=== PATIENT | female | born 1940 | race Caucasian/White ===

== ENCOUNTER → 2019-02-27 | Outpatient (CLI) | payer MEDICARE ==
--- NOTE | 2019-02-27 11:45 | REP ---
Clinical: Lung screening. History smoking. Comparison: None Technique: Axial low-dose noncontrast images from the thoracic inlet to the upper abdomen using lung screening technique. Findings: Focal area of right upper lobe scarring is appreciated with suggestions for a noncalcified central nodule measuring approximately 5 mm. Minimal bibasilar scarring is also appreciated. No consolidation, further nodule or mass lesion is identified. No pleural effusion/reaction or pneumothorax. Tracheobronchial tree is patent. Mediastinum demonstrates atherosclerotic changes of the thoracic aorta and coronary arteries without cardiomegaly. Impression: Lung-RADS category III. Right upper lobe scarring with small 5 mm noncalcified nodule suggested. Management recommendations include initial 6-month low-density CT follow-up. Electronically Signed by Omi Bhardwaj MD 02/27/2019 11:37 A
== END ==
LOC: M RAD 09:46
PROVIDERS: ATTEND Internal Medicine
DX: J44.9 Chronic obstructive pulmonary disease, unspecified (principal); R91.1 Solitary pulmonary nodule; Z12.2 Encounter for screening for malignant neoplasm of respiratory organs

== ENCOUNTER 2019-04-12 03:52 | Inpatient (IN) | payer MEDICARE ==
[2019-04-12] VITALS (25 sets, daily range): BP systolic 66–124; BP diastolic 40–61
[~2019-04-12] VITALS: Ht 157.5 cm; Wt 85.3 kg
[2019-04-12 04:13] LABS: BASO # 0.1 10^3/uL (0.0-0.2); BASO % 0.5 % (0.0-1.0); EOS # 0.3 10^3/uL (0.0-0.50); EOS % 2.4 % (0.0-3.0); HEMOGLOBIN 7.7 g/dl (12.0-15.5); LYMPH # 2.6 10^3/uL (1.5-4.5); LYMPH % 20.6 % (24.0-44.0); MEAN CORPUSCULAR HEMOGLOBIN 26.6 pg (27.0-33.0); MEAN CORPUSCULAR HGB CONC 29.6 g/dl (32.0-36.5); MONO # 1.3 10^3/uL (0.0-0.8); MONO % 9.9 % (0.0-5.0); NEUTROPHILS # 7.9 10^3/uL (1.8-7.7); NEUTROPHILS % 62.7 % (36.0-66.0); PLATELET COUNT, AUTOMATED 394 10^3/uL (150-450); RED BLOOD COUNT 2.89 10^6/uL (4.00-5.40); WHITE BLOOD COUNT 12.6 10^3/uL (4.0-10.0)
[2019-04-12 04:38] LABS: CALCIUM LEVEL 8.9 MG/DL (8.8-10.2); CK-MB VALUE MASS 8.2 NG/ML (<3.6); CREATININE FOR GFR 1.24 MG/DL (0.55-1.30); GLOMERULAR FILTRATION RATE 44.5 (>39); MB/CK RELATIVE INDEX 8.45 (< OR =4); POTASSIUM SERUM 4.7 MEQ/L (3.5-5.1); TROPONIN I 0.88 NG/ML (< 0.10)
[2019-04-12] MEDS ORDERED: IPRATROPIUM 0.5MG/ALBUTEROL 2.5MG INH SOL UD 3ML (DUONEB)(J7620) NEB ONE (05:00)
[2019-04-12] MEDS ORDERED: ASPIRIN 81 MG CHEW TABLET PO ONE (05:00)
[2019-04-12] MEDS ORDERED: ISOVUE-370 76% 100ML VIAL (Q9967) As Ordered ONE (05:04)
[2019-04-12 06:26] LABS: CK-MB VALUE MASS 8.4 NG/ML (<3.6); MB/CK RELATIVE INDEX 10.12 (< OR =4); TROPONIN I 0.93 NG/ML (< 0.10)
--- NOTE | 2019-04-12 07:21 | ECGEPIP ---
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
--- NOTE | 2019-04-12 07:29 | REPVR ---
EXAM: CT Angiography Chest With Contrast EXAM DATE/TIME: 04/12/2019 5:17 AM CLINICAL HISTORY: 78 years old, female; Chest pain TECHNIQUE: Imaging protocol: Axial computed tomographic angiography images of the chest with intravenous contrast using CT angiography protocol. Coronal and sagittal reformatted images were created and reviewed. 3D rendering: MIP reconstructed images were created and reviewed. Radiation optimization: All CT scans at this facility use at least one of these dose optimization techniques: automated exposure control; mA and/or kV adjustment per patient size (includes targeted exams where dose is matched to clinical indication); or iterative reconstruction. Contrast material: ISOVUE 370;Contrast volume: 75 ml;Contrast route: IV; COMPARISON: CR PORTABLE CHEST X-RAY 04/12/2019 4:09 AM LOW DOSE LUNG SCREENING CT 02/27/2019 10:01:17 AM FINDINGS: Pulmonary arteries: The pulmonary arteries are not enlarged. No filling defects are seen to indicate an acute pulmonary embolism. Aorta: The aorta demonstrates severe atherosclerotic plaque formation. Irregular plaque is seen in the arch of the aorta. There is no thoracic aortic aneurysm or evidence of dissection. Lungs: Architectural distortion and an associated irregular peripheral opacity are seen within the right upper lobe, nonspecific but probably postinflammatory in nature. A small area of peripheral consolidation abutting the major fissure is seen inferiorly in the left lower lobe, with associated mild architectural distortion. There is mild hazy peripheral opacity in the bilateral lobes and inferior lingula, nonspecific but probably incomplete expansion and subsegmental atelectasis. Pleural space: No pneumothorax or pleural effusions seen. Heart: There is mild cardiomegaly. There is moderate atherosclerotic calcification of the coronary arteries. Calcifications are seen at the level of the aortic valve. Spleen: A calcification in the spleen is likely a granuloma. Adrenals: The adrenal glands are diffusely thickened but without discrete nodules. Kidneys and ureters: Renal parenchymal thinning is seen in the visualized kidneys. Lymph nodes: No lymphadenopathy is seen. There is a coarsely calcified lymph node at the GE junction. Bones/joints: Degenerative endplate changes are seen at multiple levels in the visualized spine. A large Schmorl's node with depression of the center of the superior endplate is noted at the T12 vertebra. Soft tissues: Unremarkable. IMPRESSION: 1. No evidence of acute pulmonary embolism. 2. Extensive atherosclerotic disease of the thoracic aorta including irregular plaque in the arch of the aorta but no evidence of aortic aneurysm or dissection. 3. Peripheral opacities with associated architectural distortion in the right upper lobe and inferior left lower lobe, probably postinflammatory scarring, and grossly similar to the recent prior low-dose lung screening CT scan. Further interval followup is recommended however, following the recommendations given on the prior report. Electronically signed by: Jennifer Altman On 04/12/2019 07:28:43 AM
[2019-04-12] MEDS ORDERED: LISI10TA15 PO (08:06)
[2019-04-12] MEDS ORDERED: TRAV04OPD OU (08:06)
[2019-04-12] MEDS ORDERED: ASPI81TA85 PO (08:06)
[2019-04-12] MEDS ORDERED: MELO7.5T35 PO (08:06)
[2019-04-12] MEDS ORDERED: PREDOPD (08:06)
[2019-04-12] MEDS ORDERED: PANTOPRAZOLE SODIUM 40 MG in D5W 50 ML IV SCH (08:45)
[2019-04-12] MEDS ORDERED: NS 1,000 ML IV ONE ×2 (08:45→19:30)
[2019-04-12] MEDS ORDERED: PANTOPRAZOLE 40MG INJ (PROTONIX) (C9113) IV ONE (08:45)
--- NOTE | 2019-04-12 09:13 | REP ---
Portable chest x-ray: Single view. History: Semi-erect AP view. Comparison chest x-ray: June 09, 2015. Findings: EKG monitoring electrodes overlie the chest. Heart is not felt to be enlarged. The aorta is calcific and tortuous. Interstitial markings are somewhat prominent in the bases. There is mild linear fibrosis in the left base. The opacity previously projected in the right apex is no longer apparent. Impression: Bibasilar interstitial changes and linear fibrosis left base. Otherwise no acute disease. Electronically Signed by Terence Hull MD 04/12/2019 09:04 A
[2019-04-12 09:39] LABS: INR 1.01
[2019-04-12 09:40] LABS: PARTIAL THROMBOPLASTIN TIME 32.9 SECONDS (25.0-38.4)
[2019-04-12 10:43] LABS: CK-MB VALUE MASS 11.8 NG/ML (<3.6); MB/CK RELATIVE INDEX 9.15 (< OR =4); TROPONIN I 1.37 NG/ML (< 0.10)
[2019-04-12] MEDS ORDERED: MAALOX 30 ML SUSP *UDC PO PRN (11:30)
[2019-04-12] MEDS ORDERED: MOM 30ML SUSPENSION UDC PO PRN (11:30)
[2019-04-12] MEDS: IPRATROPIUM 0.5MG/ALBUTEROL 2.5MG INH SOL UD 3ML (DUONEB)(J7620) NEB SCH ×3 (12:06→20:50)
[2019-04-12] MEDS ORDERED: NICOTINE POLACRILEX 2 MG GUM PO PRN (12:30)
--- NOTE | 2019-04-12 13:01 | HPEPDOC ---
General Date of Admission 04/12/19 Date of Service: Apr 12, 2019 Other Providers PCP: Jamie Godwin; Cardiology: Sreedhar Attending Physician: ROSA RAMOS DO Chief Complaint The patient is a 78-year-old female admitted with a reason for visit of Chest Pain. Source: Patient Exam Limitations: No limitations Associated Symptoms: Chest Pain, Cough, Malaise, Shortness of breath, Weakness, Hypotension, Dizziness History of Present Illness 78 yo female brought to ED by EMS because of CP/SOB. Patient states she developped CP /SOB last night - no relief with rest, no change with exertion. States pain did not wake her up. It was not associated with N,V or diaphoresis. She states increased fatigue. not checking BP at home but faithfully taking meds. States melena stools for 1-2 days and chronic cough for years. States occasional dizziness for1-2 days. She states she started meloxicam for OA back yesterday. Drinks "couple cups" coffee daily and smokes. In the ED , patient was found to have bed bugs, elevated troponin and severely hypotensive and anemia. She was treated with IVF, IV Protonix and 1 unit pRBC Review of old records (in ED) show that pateint has had a slow decline in H/H since 07/2018. Home Medications Scheduled Aspirin (Aspir 81) 81 Mg Tablet.dr, 81 MG PO DAILY, (Reported) Lisinopril/Hydrochlorothiazide (Lisinopril-Hctz 10-12.5 mg Tab) 1 Each Tablet, 1 TAB PO DAILY, (Reported) Meloxicam (Meloxicam) 7.5 Mg Tablet, 7.5 MG PO BID, (Reported) Prednisolone Acetate (Prednisolone Acetate 1% Opth Susp) 5 Ml Drops.susp, QHS, (Reported) Travoprost (Travatan Z) 0.004% 2.5ML Drops, 1 DROP OU QHS, (Reported) Allergies Coded Allergies: No Known Allergies (Unverified , 04/12/19) Past Medical History Medical History HTN COPD Chronic anemia x 4 months OA back Glaucoma Family history: Mother NC age 58, father old age Social hx : smokes 1 ppd, +caffeine/coffee use, no etOH use Past surgical hx: LEONOR, Appy A-FIB/CHADSVASC A-FIB History Current/History of A-Fib/PAF?: No Review of Systems Other systems 10 systems reviewed and negative except as per HPI Physical Examination General Exam: Positive: Alert, Cooperative, No Acute Distress Eye Exam: Positive: PERRLA, Conjunctiva & lids normal, EOMI ENT Exam: Positive: Atraumatic, Pharynx Normal, Pinna Normal Neck Exam: Positive: Supple, +2 carotid pulse wo bruit Chest Exam: Positive: Clear to auscultation, Normal air movement, Diminished, Other (course breath sounds but no W/R/R) Heart Exam: Positive: Rate Normal, Regular Rhythm, Normal S1, Normal S2, Murmurs Telemetry: Positive: Sinus Abdomen Exam: Positive: Normal bowel sounds, Soft (NT ND, no rebound, no rigidity, obese), Other (HEME + stool) Extremity Exam: Positive: Normal pulses; Negative: Clubbing, Cyanosis, Edema Skin Exam: Positive: Nl turgor and temperature Neuro Exam: Positive: Normal Speech, Strength at 5/5 X4 ext, Normal Tone, Sensation Intact Psych Exam: Positive: Mental status NL, Mood NL, Memory Intact, Oriented x 3 Vital Signs Vital Signs Date Time Temp Pulse Resp B/P (MAP) Pulse Ox O2 Delivery O2 Flow Rate FiO2 04/12/19 11:01 85/48 (60) 04/12/19 11:00 98 98 04/12/19 08:00 97.2 15 Room Air 04/12/19 05:37 1.0 Laboratory Data Labs 24H Laboratory Tests 2 04/12/19 04:07: Immature Granulocyte % (Auto) 3.9H, White Blood Count 12.6H, Red Blood Count 2.89L, Hemoglobin 7.7L, Hematocrit 26.0L, Mean Corpuscular Volume 90.0, Mean Corpuscular Hemoglobin 26.6L, Mean Corpuscular Hemoglobin Concent 29.6L, Red Cell Distribution Width 17.1H, Platelet Count 394, Neutrophils (%) (Auto) 62.7, Lymphocytes (%) (Auto) 20.6L, Monocytes (%) (Auto) 9.9H, Eosinophils (%) (Auto) 2.4, Basophils (%) (Auto) 0.5, Neutrophils # (Auto) 7.9H, Lymphocytes # (Auto) 2.6, Monocytes # (Auto) 1.3H, Eosinophils # (Auto) 0.3, Basophils # (Auto) 0.1, Nucleated Red Blood Cells % (auto) 0.0, Anion Gap 11, Glomerular Filtration Rate 44.5, Blood Urea Nitrogen 36H, Creatinine 1.24, Sodium Level 141, Potassium Level 4.7, Chloride Level 106, Carbon Dioxide Level 24, Calcium Level 8.9, Total Creatine Kinase 97, Creatine Kinase MB 8.2H, Creatine Kinase MB Relative Index 8.45H, Troponin I 0.88H 04/12/19 05:59: Total Creatine Kinase 83, Creatine Kinase MB 8.4H, Creatine Kinase MB Relative Index 10.12H, Troponin I 0.93H 04/12/19 08:44: Prothrombin Time 13.0, Prothromb Time International Ratio 1.01, Activated Partial Thromboplast Time 32.9 04/12/19 09:54: Total Creatine Kinase 129, Creatine Kinase MB 11.8H, Creatine Kinase MB Relative Index 9.15H, Troponin I 1.37#H CBC/BMP Laboratory Tests 04/12/19 04:07 Red Blood Count 2.89 L, Mean Corpuscular Volume 90.0, Mean Corpuscular Hemoglobin 26.6 L, Mean Corpuscular Hemoglobin Concent 29.6 L, Red Cell Distribution Width 17.1 H, Neutrophils (%) (Auto) 62.7, Lymphocytes (%) (Auto) 20.6 L, Monocytes (%) (Auto) 9.9 H, Eosinophils (%) (Auto) 2.4, Basophils (%) (Auto) 0.5, Neutrophils # (Auto) 7.9 H, Lymphocytes # (Auto) 2.6, Monocytes # (Auto) 1.3 H, Eosinophils # (Auto) 0.3, Basophils # (Auto) 0.1, Calcium Level 8.9, Total Creatine Kinase [address] SCAN IMPRESSION: 1. No evidence of acute pulmonary embolism. 2. Extensive atherosclerotic disease of the thoracic aorta including irregular plaque in the arch of the aorta but no evidence of aortic aneurysm or dissection. 3. Peripheral opacities with associated architectural distortion in the right upper lobe and inferior left lower lobe, probably postinflammatory scarring, and grossly similar to the recent prior low-dose lung screening CT scan. Further interval followup is recommended however, following the recommendations given on the prior report. CXR:Impression: Bibasilar interstitial changes and linear fibrosis left base. Otherwise no acute disease. EKG: RBBB, no STT changes; 98 BPM Assessment/Plan symptomatic anemia due to chronic blood loss from probable chronic UGI bleed transfuse 1 unit pRBC (started in ED) will need outpatient EGD. Suspect gastritis from NSAID, Caffeine and tobacco use Hypotension without tachycardia Suspect due to BP medications and not from UGI bleed (as no tachycardia) IVF. supportive care Hold lisinopril/HCTZ Elevated troponin - demand ischemia (NSTEMI Type II) due to hypotension, anemia from chronic UGI bleed COPD - without exacerbation prn nebs Bed Bug infestation - seen in ED; contact isolation. DVT prophylaxis: lovenox CODE STATUS: DNR - patient states son will bring in her copy from home of [facility] Plan / VTE VTE Prophylaxis Ordered?: Yes ROSA RAMOS DO Apr 12, 2019 11:30
[2019-04-12] MEDS: PANTOPRAZOLE SODIUM 40 MG in D5W 50 ML IV SCH ×3 (14:13→19:30)
[2019-04-12] MEDS: CHLORHEXIDINE GLUCONATE 0.12 % 15ML UDC (PERIDEX ORAL RINSE) MT SCH ×2 (14:21→20:05)
[2019-04-12] MEDS: DOCUSATE SODIUM 100 MG CAP PO SCH ×2 (14:28→20:05)
[2019-04-12] MEDS: ENOXAPARIN 40 MG/0.4 ML SYRINGE (J1650) SC SCH (14:29)
[2019-04-12] MEDS: NICOTINE 21MG/24HR 1 EA TRANSDERMAL TD SCH (14:29)
[2019-04-12] MEDS: NS 1,000 ML IV SCH ×2 (14:29→22:03)
[2019-04-12 17:57] LABS: HEMATOCRIT 26.4 % (36.0-47.0); HEMOGLOBIN 8.3 g/dl (12.0-15.5); MEAN CORPUSCULAR HEMOGLOBIN 28.7 pg (27.0-33.0); MEAN CORPUSCULAR HGB CONC 31.4 g/dl (32.0-36.5); MEAN CORPUSCULAR VOLUME 91.3 fl (80.0-96.0); PLATELET COUNT, AUTOMATED 300 10^3/uL (150-450); RED BLOOD COUNT 2.89 10^6/uL (4.00-5.40); WHITE BLOOD COUNT 11.4 10^3/uL (4.0-10.0)
--- NOTE | 2019-04-12 20:12 | ECGEPIP ---
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
[2019-04-12] MEDS ORDERED: NOREPINEPHRINE BITARTRATE 8 MG in D5W 500 ML IV SCH (20:33)
[2019-04-12] MEDS ORDERED: NOREPINEPHRINE 4 MG/4 ML AMP As Ordered ONE (20:38)
[2019-04-12] MEDS ORDERED: SODIUM CHLORIDE 0.9% 1000ML IV ONE ×2 (20:45→21:30)
[2019-04-12 20:58] LABS: ABG HCO3 20.7 MEQ/L (22.0-26.0); ABG O2 SATURATION 99.2 % (95.0-99.0); ABG PARTIAL PRESSURE CO2 36.2 mmHg (35.0-45.0); ABG PARTIAL PRESSURE O2 160.6 mmHg (75.0-100.0); ABG STANDARD HCO3 21.1 MEQ/L (22.0-26.0); ABG TOTAL CO2 21.9 MEQ/L (23.0-31.0); ABG pH (ARTERIAL) 7.376 UNITS (7.350-7.450)
[2019-04-12] MEDS: PANTOPRAZOLE 40MG INJ (PROTONIX) (C9113) IV SCH (21:00)
[2019-04-12] MEDS: ACETAMINOPHEN TAB 650MG DOSE (2X325MG) PO PRN (21:36)
[2019-04-13] VITALS (26 sets, daily range): BP systolic 74–141; BP diastolic 48–70; O2SAT 93–98
[2019-04-13] MEDS ORDERED: SODIUM CHLORIDE 0.9% 1000ML IV ONE (01:15)
[2019-04-13 02:30] LABS: ABG BASE EXCESS -6.6 (-2.0-2.0); ABG HCO3 19.1 MEQ/L (22.0-26.0); ABG O2 SATURATION 90.4 % (95.0-99.0); ABG PARTIAL PRESSURE CO2 38.8 mmHg (35.0-45.0); ABG PARTIAL PRESSURE O2 62.1 mmHg (75.0-100.0); ABG STANDARD HCO3 18.9 MEQ/L (22.0-26.0); ABG TOTAL CO2 20.3 MEQ/L (23.0-31.0)
[2019-04-13] MEDS: ALBUTEROL SULFATE 2.5 MG/0.5 ML INH NEB SOLN NEB PRN (02:54)
[2019-04-13] MEDS: NS 1,000 ML IV SCH ×3 (03:03→12:58)
[2019-04-13 03:10] LABS: HEMATOCRIT 26.8 % (36.0-47.0); HEMOGLOBIN 8.3 g/dl (12.0-15.5); MEAN CORPUSCULAR HEMOGLOBIN 28.3 pg (27.0-33.0); MEAN CORPUSCULAR VOLUME 91.5 fl (80.0-96.0); PLATELET COUNT, AUTOMATED 304 10^3/uL (150-450); RED BLOOD COUNT 2.93 10^6/uL (4.00-5.40); WHITE BLOOD COUNT 9.9 10^3/uL (4.0-10.0)
[2019-04-13 03:36] LABS: ALBUMIN 2.9 GM/DL (3.2-5.2); BILIRUBIN,TOTAL 0.2 MG/DL (0.2-1.0); CALCIUM LEVEL 7.7 MG/DL (8.8-10.2); CREATININE FOR GFR 1.12 MG/DL (0.55-1.30); GLOMERULAR FILTRATION RATE 50.1 (>39); POTASSIUM SERUM 4.4 MEQ/L (3.5-5.1); TOTAL PROTEIN 5.8 GM/DL (6.4-8.2)
[2019-04-13] MEDS: IPRATROPIUM 0.5MG/ALBUTEROL 2.5MG INH SOL UD 3ML (DUONEB)(J7620) NEB SCH ×4 (07:25→20:41)
--- NOTE | 2019-04-13 07:27 | CCN ---
DATE OF VISIT: 04/12/2019 START TIME: 2049 STOP TIME: 2135 I was called to attend Briana Terry here in the intensive care unit. I was called by Dr. Fortune. The patient has been examined and the chart reviewed. I have spoken with Dr. Fortune as well as the nurse at the bedside. In essence, this is a 78-year-old female who is a long time tobacco abuser. She has known cardiac dysfunction and hypertension with chronic obstructive pulmonary disease (COPD). She was admitted today with chest pain and shortness of breath. She was found to be anemic and apparently this has been slowly progressive over time. Hemoglobin at the time of admission was 7.7. Troponin at that point in time was 0.88. Most recent one drawn at 1740 hours is up to 1.82. She was somewhat hypotensive on admission and was given 2 units of packed red blood cells as well as some IV fluids, a total of 3 liters. She remained hypotensive in the 60s and I was asked to evaluate her. On my arrival, she had been given a liter of saline per my order. Blood pressure now 90 systolic. Heart rate 110. Her chest pain is resolved. She complains of some back and neck pain. No fever. She smokes heavily at home and has no plans on quitting. She has proclaimed herself a DO NOT RESUSCITATE/DO NOT INTUBATE (DNR/DNI) and the appropriate paperwork has been signed by her. Lactic acid just drawn is 1.6. Blood gas shows a pH of 7.376, pCO2 36.2, and pO2 of 160 on [address] angiogram shows no clot. There is atherosclerotic disease and what appears to be peripheral scarring, especially of the right upper lobe. There may be an area of ground glass opacity peripherally in te posterior segment of the right upper lobe. The remainder of her laboratories show a white blood cell count of 12.6, platelet count of 394,000, 62% segs, 0 bands. Sodium 141, potassium 4.7, chloride 106, CO2 24, BUN 36, creatinine 1.24, glucose 108. Troponin as outlined above. Clotting studies unremarkable. On exam, she is awake, alert and appropriate. Follows all commands. Moves all extremities. Has some mild discomfort in her upper back and neck, but no meningismus. HEENT: Shows her to be normocephalic, atraumatic. Pupils react. Neck is reasonably supple. Trachea is midline. No jugular venous distention (JVD). Chest shows some end expiratory wheeze, only with forced maneuver. There is cough, but no egophony. There are some faint crackles dependently. No rubs. Cardiac: Mildly tachycardiac, but regular. Peripheral pulses palpable. No obvious edema. Abdomen: Obese. Soft. Active bowel sounds. Nontender. No obvious organomegaly or masses. Extremities: Without cyanosis or clubbing. Neurologic: She is awake, alert and appropriate. Psychiatric: Generally is with normal mood and affect. Laboratories as outlined above. Initially, afebrile at 96.8 on admission, maxed out at 100.1 and last temperature 99.9. Current medications show no antimicrobials and I do not see them to be indicated at this point. She is on DuoNeb, Lovenox, Tylenol, Colace, Mylanta, Nicoderm patches. The most pressing problems requiring my presence at the bedside are hypotension currently responding to IV fluids, positive troponins, long standing and continued tobacco abuse, DNR/DNI status. At this point, her cardiac status is being evaluated by the primary service. Repeat troponins have been ordered. At this point, she has responded nicely to IV fluids. Anemia work up is in progress through the primary service as well. At this point, I do not see an indication for vasopressors. I left the bedside at 2136 hours. 46 minutes of critical care time delivered at the bedside, not including procedures.
[2019-04-13] MEDS: CHLORHEXIDINE GLUCONATE 0.12 % 15ML UDC (PERIDEX ORAL RINSE) MT SCH ×2 (07:44→21:00)
[2019-04-13] MEDS: DOCUSATE SODIUM 100 MG CAP PO SCH ×2 (08:02→21:00)
[2019-04-13] MEDS: NICOTINE 21MG/24HR 1 EA TRANSDERMAL TD SCH (08:02)
[2019-04-13] MEDS: ENOXAPARIN 40 MG/0.4 ML SYRINGE (J1650) SC SCH (08:02)
[2019-04-13] MEDS: PANTOPRAZOLE 40MG INJ (PROTONIX) (C9113) IV SCH ×2 (08:03→21:30)
[2019-04-13 08:22] LABS: HEMATOCRIT 28.4 % (36.0-47.0); HEMOGLOBIN 8.8 g/dl (12.0-15.5); MEAN CORPUSCULAR HEMOGLOBIN 28.5 pg (27.0-33.0); MEAN CORPUSCULAR VOLUME 91.9 fl (80.0-96.0); PLATELET COUNT, AUTOMATED 305 10^3/uL (150-450); RED BLOOD COUNT 3.09 10^6/uL (4.00-5.40); WHITE BLOOD COUNT 10.6 10^3/uL (4.0-10.0)
[2019-04-13] MEDS ORDERED: diphenhydrAMINE 25 MG CAP PO SCH (09:30)
[2019-04-13] MEDS ORDERED: ACETAMINOPHEN TAB 650MG DOSE (2X325MG) PO SCH (09:30)
--- NOTE | 2019-04-13 09:42 | IPNPDOC ---
Text Note Date of Service The patient was seen on 04/13/19. NOTE S: patient had episode of increased SOB and worsening hypotension during night. Currently she states no CP, no wheezing (post neb) but more COCHRAN. She has had 2 heme negative stools. O: Vitals as below. Current BP 106/52 General: pleasant NAD AAOx3 HRRR no murmur LCTA no W/R/R Ext 1+ edema Abdomen soft NT ND NABS EKG: no change - incomplete RBBB CXR image reviewed and increased vascular congestion ECHO pending A/P: Hypotension without tachycardia Suspect due to BP medications and not from UGI bleed (as no tachycardia) temporary improvement with albumin transfusion last night Rope Tier consulted and assistance appreciated IVF (decrease from 200cc/hr to 80cc/hr). 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 ECHO pending Lasix x 1 dose ; hold lisinopril/HCT due to hypotension symptomatic anemia due to chronic blood loss from probable chronic UGI bleed transfuse 2 unit pRBC on 04/12/19 transfuse 1 unit pRBC on 04/13/19 with lasix after transfusion will need outpatient EGD. Suspect gastritis from NSAID, Caffeine and tobacco use COPD - without exacerbation scheduled duoneb q4hour. no need for steroids or antibiotics at this time. Bed Bug infestation - seen in ED; contact isolation. DVT prophylaxis: lovenox CODE STATUS: DNR VS,Fishbone, I+O VS, Fishbone, I+O Laboratory Tests 04/12/19 17:40 Red Blood Count 2.89 L, Mean Corpuscular Volume 91.3, Mean Corpuscular Hemoglobin 28.7, Mean Corpuscular Hemoglobin Concent 31.4 L, Red Cell Distribution Width 16.1 H 04/13/19 02:56 Red Blood Count 2.93 L, Mean Corpuscular Volume 91.5, Mean Corpuscular Hemoglobin 28.3, Mean Corpuscular Hemoglobin Concent 31.0 L, Red Cell Distribution Width 16.4 H, Calcium Level 7.7 L, Aspartate Amino Transf (AST/SGOT) 90 H, Alanine Aminotransferase (ALT/SGPT) 85 H, Alkaline Phosphatase 98, Total Bilirubin 0.2, Total Protein 5.8 L, Albumin 2.9 L Vital Signs Date Time Temp Pulse Resp B/P (MAP) Pulse Ox O2 Delivery O2 Flow Rate FiO2 04/13/19 06:49 96/49 (65) 04/13/19 05:49 97 98 04/13/19 04:00 6.0 04/13/19 03:49 99.0 18 04/13/19 02:51 Nasal Cannula I&O- Last 24 Hours up to 6 AM 04/13/19 06:00 Intake Total 8307 ml Output Total 1375 ml Balance 6932 ml ROSA RAMOS DO Apr 13, 2019 07:48
[2019-04-13] MEDS ORDERED: FUROSEMIDE 40 MG/4 ML VIAL (J1940) IV ONE (10:00)
--- NOTE | 2019-04-13 10:38 | REP ---
AP PORTABLE CHEST: 04/13/2019. Comparison: CT angio chest AP, chest 04/12/2019. Clinical history: Dyspnea. Compared to the previous study. There is more interstitial change in the lung abraham and vascular engorgement. I suggest some interstitial edema may be present. Increased markings in the right base reflect some patchy atelectasis or infiltrate. No gross effusions but small posterior effusion difficult to exclude. Heart size unchanged. The aorta is calcified at the arch. Airway intact. Impression: 1. Interval development of some vascular congestion and interstitial edema. Some superimposed patchy atelectasis/infiltrates/edema in the bases since the portable chest and CT of yesterday. Electronically Signed by Irving Perkins MD 04/13/2019 09:47 P
[2019-04-13 15:09] LABS: HEMATOCRIT 31.5 % (36.0-47.0); HEMOGLOBIN 9.7 g/dl (12.0-15.5); MEAN CORPUSCULAR HEMOGLOBIN 28.5 pg (27.0-33.0); MEAN CORPUSCULAR HGB CONC 30.8 g/dl (32.0-36.5); MEAN CORPUSCULAR VOLUME 92.6 fl (80.0-96.0); PLATELET COUNT, AUTOMATED 317 10^3/uL (150-450); WHITE BLOOD COUNT 13.3 10^3/uL (4.0-10.0)
--- NOTE | 2019-04-13 16:16 | ECGEPIP ---
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
--- NOTE | 2019-04-13 16:21 | ECGEPIP ---
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
--- NOTE | 2019-04-13 16:28 | CR ---
DATE OF CONSULTATION: 04/13/2019 REFERRING PROVIDER: Dr. Lani Lozano PRIMARY PHYSICIAN: Dr. Jamie Godwin PRIMARY CARDIOLOGY: Dr. Ole Eli REASON FOR CONSULTATION: Abnormal serum troponin. A 78-year-old woman, well known by the office, and she stated she usually sees Dr. Eli yearly. She came to the hospital on 04/12/2019, brought by her grandson because of chest pain, shortness of breath. She was found to be hypotensive in emergency room (ER) with a systolic blood pressure as low as 80 mm of mercury. She was given intravenous (IV) fluids. She also was found to be anemic, and she was transfused 2 units of packed red blood cells. She was admitted to intensive care unit (ICU)/critical care unit (CCU) for further management and monitoring. Serum troponin was abnormal, and cardiology consult was called. When I saw Mrs. Briana Terry, this morning, she was sitting in a chair in no acute distress at rest, and she was about to start her third unit of packed red blood cells. She stated she feels much better. She uses a walker at home, and prior to coming to the hospital, she had not been having any chest pain. She does have some shortness of breath with activities, relieved with rest. She has a cough but denies any hemoptysis. She denies any palpitations, and she has no pedal edema. She had no orthopnea or paroxysmal nocturnal dyspnea (PND). She has a long history of arthritis and was recently seen by orthopedics, and she was started on meloxicam, and she stated she only took 1 meloxicam. Prior to that, she has been on aspirin and lisinopril HCT. In the last few days prior to coming to the hospital, she had noticed some changes in the color of her stools. They were black. She has no focal manifestation. At this present time, she denies dizziness, and she has not been having any chest pain. She has no palpitations. There is no focal manifestation. She continues to cough. Last night, she also was hypotensive and received a few boluses of IV fluids with normal saline. PAST MEDICAL HISTORY: Positive for: 1. Hypertension. 2. Arthritis. 3. Chronic obstructive pulmonary disease (COPD). 4. Heart murmur, but the patient could not elaborate. 5. Arthritis with degenerative joint disease. 6. She does have a history of glaucoma and anemia. She denies any history of hyperlipidemia, diabetes mellitus, obstructive coronary artery disease, myocardial infarction, congestive heart failure, atrial fibrillation, cardiomyopathy, sudden cardiac , cerebrovascular accident (CVA)/transient ischemic attacks (TIA). PAST SURGICAL HISTORY: Positive for: 1. Appendectomy. 2. Transabdominal hysterectomy. FAMILY HISTORY. Positive for coronary artery disease (CAD). SOCIAL HISTORY: The patient currently lives with her grandson. She does smoke about one pack per day of cigarettes. She denies any EtOH (ethanol) abuse. She drinks a lot of caffeine. ALLERGIES: No known drug allergies. HOME MEDICATIONS: - aspirin 81 mg by mouth daily - lisinopril HCT 10/12.5 mg by mouth daily - meloxicam 7.5 mg by mouth twice a day - Travatan eyedrops 0.004% as directed both eyes at bedtime. - prednisolone 1% ophthalmic solution as directed at bedtime ADVANCE DIRECTIVES: The patient has a DO NOT RESUSCITATE and DO NOT INTUBATE status. PHYSICAL EXAMINATION: The patient he is alert and awake in no acute distress at rest. VITAL SIGNS: When I was at bedside revealed a blood pressure of 110/65 with a pulse of 92, respiration 18, and her maximum temperature earlier today was 99 degrees Fahrenheit with an oxygen saturation of 92-93% on 6 liters nasal cannula. HEAD: Atraumatic. NECK: Supple and no jugular venous distention (JVD) appreciated. LUNGS: Did not reveal any wheezing. There are some minimal crackles at the bases. HEART: Revealed regular heart sounds without gallops. The point of maximal impulse (PMI) is not displaced. There is no rub. There is a systolic murmur, grade 2-3 over 6 over the precordium lateral at the base of heart/aortic valve area with some minimal radiation to the neck. ABDOMEN: Unremarkable. EXTREMITIES: Reveal no pedal edema. Peripheral pulses, radial pulses palpated and equal. NEUROLOGIC: Negative for focal deficit. LABORATORY DATA: CBC done this morning at 8:13 revealed a WBC of 10.6, hemoglobin 8.8, hematocrit 28.4, and platelets 305,000. On admission April 12, CBC revealed WBC of 12.6, hemoglobin 7.7, hematocrit 26.0, and platelets 394,000. BMP done today revealed a sodium of 139, potassium 4.4, chloride 113, CO2 of 21, BUN 24, creatinine 1.12, GFR 50.1 ,fasting glucose 116, calcium 7.7. Serum lactic acid was 1.6. Liver enzymes reveal a total bilirubin 0.2, AST 90. ALT 85, alkaline phosphatase is 98, total protein 5.8, albumin 2.9. Serum troponins were 0.88, 0.93, 1.37, 1.82, 1.71, and today 2.18, respectively, #1 and up to #6. Serum proBNP is 3268. BMP on admission revealed a sodium of 141, potassium 4.7, chloride 106, CO2 of 24, BUN 36, creatinine 1.24, GFR 44.5, fasting glucose 108, and calcium 8.9. Electrocardiogram on 04/12/2019 at 5:57 revealed normal sinus rhythm with an incomplete right bundle branch block pattern. There were some minimal ST-T abnormalities noted in the anterolateral leads. Electrocardiogram on 04/12/2019 at 10:06 did not reveal any significant changes. Telemetry revealed normal sinus rhythm. Chest x-ray on admission, 04/12/2019, revealed bibasilar interstitial changes, otherwise no acute disease process. The aorta is calcific and tortuous. CT angiogram on admission revealed no evidence of pulmonary embolism but extensive atherosclerotic disease of the thoracic aorta but no aneurysm or dissection. Chest x-ray today early in the morning revealed increased interstitial markings/edema. IMPRESSION: 1. Abnormal serum troponin in a 78-year-old woman with history of hypertension, smoking, and extensive atherosclerotic disease noted in the thoracic aorta. The physical examination revealed valvular heart disease that is probably related to moderate aortic stenosis. She was markedly anemic on presentation. She was found to have abnormal stool guaiac. The abnormal serum troponin is probably related to demand ischemia, but in view of her history, she probably has underlying obstructive coronary artery disease that will need to be worked out once more stable and as outpatient. There is no need at this present time to give her high dose of anticoagulation therapy because of the positive stool guaiac and anemia and melena. She is not candidate for any angiotensin-converting enzyme (APRYL) inhibitor or beta bull at this present time because of hypotension. I would stay away from any statin because of the abnormal liver function tests (LFTs). I will repeat the LFTs tomorrow, and if it is improved, she will be started on a high-intensity statin. We also will stay away from antiplatelet therapy at this present time. If she continues to be stable, we can start her on a baby aspirin. 2. History of hypertension, status post hypotensive episodes, and her blood pressure is improved. She will be monitored off the lisinopril HCT. 4. Valvular heart disease and probably aortic stenosis, at least moderate. This is being addressed. Echocardiogram is pending. 5. Active smoker, currently on nicotine patch. 6. Status post acute kidney injury, improving. 7. Anemia due to gastrointestinal (GI) blood loss, and this is being addressed. She has received already 3 units of packed red blood cells. She will benefit at some point from GI workup if she agrees. 8. Arthritis secondary to degenerative joint disease. 9. History of chronic obstructive pulmonary disease (COPD), on oxygen supplement. 10. Heart failure, probably diastolic in nature. Echocardiogram is pending. Intravenous (IV) Lasix/furosemide can be given as needed to prevent and treat her fluid overload. It was a pleasure to participate in the care of Mrs. Briana Terry for her underlying cardiac condition. I will continue to monitor her along issue. Please do not hesitate to call if any question. Case was discussed with her hospitalist. SHAINA
[2019-04-13 21:14] LABS: HEMATOCRIT 30.3 % (36.0-47.0); HEMOGLOBIN 9.3 g/dl (12.0-15.5); MEAN CORPUSCULAR HEMOGLOBIN 28.3 pg (27.0-33.0); MEAN CORPUSCULAR HGB CONC 30.7 g/dl (32.0-36.5); MEAN CORPUSCULAR VOLUME 92.1 fl (80.0-96.0); PLATELET COUNT, AUTOMATED 278 10^3/uL (150-450); RED BLOOD COUNT 3.29 10^6/uL (4.00-5.40); WHITE BLOOD COUNT 11.2 10^3/uL (4.0-10.0)
[2019-04-13] MEDS: OPTH OU SCH (21:30)
[2019-04-13] MEDS: TRAVATAN Z 0.004% OU SCH (21:30)
[2019-04-14] VITALS (10 sets, daily range): BP systolic 95–124; BP diastolic 45–74; O2SAT 96–98
[2019-04-14] MEDS: IPRATROPIUM 0.5MG/ALBUTEROL 2.5MG INH SOL UD 3ML (DUONEB)(J7620) NEB SCH ×6 (01:53→23:44)
[2019-04-14] MEDS: NS 1,000 ML IV SCH (02:54)
[2019-04-14] MEDS: ALBUTEROL SULFATE 2.5 MG/0.5 ML INH NEB SOLN NEB PRN (04:03)
[2019-04-14 05:26] LABS: HEMATOCRIT 29.1 % (36.0-47.0); MEAN CORPUSCULAR HEMOGLOBIN 27.8 pg (27.0-33.0); MEAN CORPUSCULAR HGB CONC 30.9 g/dl (32.0-36.5); MEAN CORPUSCULAR VOLUME 89.8 fl (80.0-96.0); PLATELET COUNT, AUTOMATED 299 10^3/uL (150-450); RED BLOOD COUNT 3.24 10^6/uL (4.00-5.40); WHITE BLOOD COUNT 10.4 10^3/uL (4.0-10.0)
[2019-04-14 05:56] LABS: ALBUMIN 2.8 GM/DL (3.2-5.2); BILIRUBIN,TOTAL 0.2 MG/DL (0.2-1.0); CALCIUM LEVEL 8.3 MG/DL (8.8-10.2); CHOLESTEROL RISK RATIO 3.527 (<5); CREATININE FOR GFR 1.01 MG/DL (0.55-1.30); GLOMERULAR FILTRATION RATE 56.4 (>39); POTASSIUM SERUM 4.2 MEQ/L (3.5-5.1); TOTAL PROTEIN 5.7 GM/DL (6.4-8.2); TROPONIN I 1.6 NG/ML (< 0.10)
--- NOTE | 2019-04-14 10:22 | IPNPDOC ---
Text Note Date of Service The patient was seen on 04/14/19. NOTE S: patient states feeling better. abdomen pain with increased cough. States no CP, +chronic cough and SOB. no orthopnea. Does not use oxygen at home and is currently on 6 liter with ox sat 97%. O: Vitals as below. BP improved and stable 118/72 current HRRR with murmur LCTA with course scattered rhonchi, right base rales Ext: 1+ edema CXR images reviewed and increased vascular congestion, possible infiltrate RLL vs atelectasis A/P: Hypotension without tachycardia - RESOLVED Suspect due to BP medications and not from UGI bleed (as no tachycardia) temporary improvement with albumin transfusion last night Players Assistant and cardiology consulted and assistance appreciated d/c IVF. Transfer from ICU to PCU Elevated troponin - probable demand ischemia (NSTEMI Type II) due to hypotension, anemia from chronic UGI bleed with possible underlying CAD Patient usually sees Dr Eli - will need outpatient follow up of CAD Start ASA 81mg and metoprolol succ 12.5mg daily with hold parameters now that BP is stabilized. Troponins trending down. Aortic Stenosis - moderate - echo pending . cardiology consulted. start metoprolol 12.5mg daily and if BP tolerates, add back low dose APRYL-I. avoid diuretics unless worsening CHF Acute diastolic CHF due to IVF for hypotension resuscitation - given one dose IV lasix on 04/13. monitor Chronic bronchitis with underlying COPD without exacerbation - start rocephin/azithromycin. IS PEP, nebs symptomatic anemia due to chronic blood loss from probable chronic UGI bleed transfuse 2 unit pRBC on 04/12/19 transfuse 1 unit pRBC on 04/13/19 with lasix after transfusion will need outpatient EGD. Suspect gastritis from NSAID, Caffeine and tobacco use Bed Bug infestation - seen in ED; contact isolation. DVT prophylaxis: lovenox CODE STATUS: DNR VS,Fishbone, I+O VS, Fishbone, I+O Laboratory Tests 04/13/19 08:13 Red Blood Count 3.09 L, Mean Corpuscular Volume 91.9, Mean Corpuscular Hemoglobin 28.5, Mean Corpuscular Hemoglobin Concent 31.0 L, Red Cell Distribution Width 16.6 H 04/13/19 14:59 Red Blood Count 3.40 L, Mean Corpuscular Volume 92.6, Mean Corpuscular Hemoglobin 28.5, Mean Corpuscular Hemoglobin Concent 30.8 L, Red Cell Distrib ution Width 16.2 H 04/13/19 21:08 Red Blood Count 3.29 L, Mean Corpuscular Volume 92.1, Mean Corpuscular Hemoglobin 28.3, Mean Corpuscular Hemoglobin Concent 30.7 L, Red Cell Di stribution Width 16.5 H 04/14/19 05:00 Red Blood Count 3.24 L, Mean Corpuscular Volume 89.8, Mean Corpuscular Hemoglobin 27.8, Mean Corpuscular Hemoglobin Concent 30.9 L, Red Cell Distribution Width 16.5 H, Calcium Level 8.3 L, Aspartate Amino Transf (AST/SGOT) 41 H, Alanine Aminotransferase (ALT/SGPT) 62, Alkaline Phosphatase 91, Total Bilirubin 0.2, Triglycerides Level 88, LDL Cholesterol 73, Total Protein 5.7 L, Albumin 2.8 L Vital Signs Date Time Temp Pulse Resp B/P (MAP) Pulse Ox O2 Delivery O2 Flow Rate FiO2 04/14/19 04:03 98 Nasal Cannula 6.0 04/14/19 04:00 98.7 119 18 124/74 (91) I&O- Last 24 Hours up to 6 AM 04/14/19 06:00 Intake Total 4020 ml Output Total 3000 ml Balance 1020 ml ROSA RAMOS DO Apr 14, 2019 07:58
[2019-04-14] MEDS: CHLORHEXIDINE GLUCONATE 0.12 % 15ML UDC (PERIDEX ORAL RINSE) MT SCH ×2 (10:23→20:45)
[2019-04-14] MEDS: DOCUSATE SODIUM 100 MG CAP PO SCH ×2 (10:24→20:45)
[2019-04-14] MEDS: METOPROLOL SUCC *XL* 12.5MG PER 1/2 TAB (TopROL *XL*) PO SCH (10:24)
[2019-04-14] MEDS: NICOTINE 21MG/24HR 1 EA TRANSDERMAL TD SCH (10:42)
[2019-04-14] MEDS: cefTRIAXone SOD 2 GM in D5W MINI-BAG PLUS 50 ML IV SCH (10:43)
[2019-04-14] MEDS: AZITHROMYCIN 250 MG TAB PO SCH (10:43)
[2019-04-14] MEDS: ASPIRIN 81 MG ENTERIC TAB PO SCH (10:43)
[2019-04-14] MEDS: PANTOPRAZOLE 40MG TAB (PROTONIX) PO SCH ×2 (10:44→20:46)
[2019-04-14] MEDS: ENOXAPARIN 40 MG/0.4 ML SYRINGE (J1650) SC SCH (10:44)
[2019-04-14] MEDS ORDERED: FUROSEMIDE 20 MG/2 ML VIAL (J1940) IV ONE (12:00)
--- NOTE | 2019-04-14 12:36 | IPN ---
DATE OF SERVICE: 04/14/2019 Mrs. Briana Terry was seen this morning, she was sitting in chair in no acute distress at rest in the intensive care unit (ICU). She denies any chest pain. She was admitted a couple days ago with anemia secondary to gastrointestinal (GI) bleeding and hypotensive. She was found to have an abnormal serum troponin. She was transfused up to 3 units of packed red blood cells. This morning, when I saw her, she denies any chest pain or palpitations. She appears to be a little short of breath. Her stools have been back to the regular color and she was started on a baby aspirin daily. She is now being started by the hospitalist on IV antibiotics. There is no focal manifestation. There is no abdominal pain. There is no fever or chills. On physical examination, the patient is alert and oriented, in no acute distress at rest. Her most recent vital signs reveal a blood pressure of 113/59 - 104/59 with a pulse that was up to 105 when I was at bedside, respirations 20 and a maximum temperature 98.8 degrees Fahrenheit with an oxygen saturation of 93% on 6 liters nasal cannula. Examination of the Head: Atraumatic. Neck is supple. I could not appreciate any jugular venous distention (JVD) when sitting. Lungs: Revealed minimal crackles at the bases. Heart Examination revealed irregular sounds without gallops. The PMI is nondisplaced. There is no rub. There is a systolic murmur grade 2-3/6 over the precordium lateral to the base of the heart with some radiation to the neck. Abdomen is protuberant, nontender. Extremities: Revealed trace to +1 bilateral lower leg edema. Neurological examination is negative for focal deficit. Labs: BMP done today revealed a sodium of 142, potassium 4.2, chloride 113, CO2 23, BUN 17, creatinine 0.10, GFR 56.4, fasting glucose 93 and calcium 8.3. Liver enzymes revealed total bilirubin of 0.2, AST 41, ALT 62, alkaline phosphatase 91, total protein 5.7, and albumin 2.8. Serum troponin yesterday was 2.18, 2.19, and this morning is 1.60. Lipid profile done today revealed a total cholesterol of 127 with triglycerides of 88, LDL cholesterol 73 and HDL 36 with a total cholesterol/HDL ratio of 3.5. CBC done today revealed a WBC of 10.4, hemoglobin 9.0, hematocrit 29.1 and platelet 199,000. Telemetry revealed normal sinus rhythm, mildly tachycardiac, isolated PACs noted when I was at bedside. Chest x-ray seems to be a poor inspiratory film with mild cardiomegaly, blunting of the costophrenic angle and increase vascular markings, tortuous and calcified aorta noted. IMPRESSIONS: 1. Abnormal serum troponin. Patient with a history of hypertension, smoking and extensive atherosclerotic disease noted in the thoracic aorta. Most likely, she has underlying coronary artery disease (CAD). Echocardiogram done yesterday revealed a normal global left ventricular systolic function. She has not been having any chest pain. Her abnormal serum troponin may be related to some degree of demand ischemia in the setting of anemia, hypotension and underlying valvular heart disease, but will need to one point rule out any restrictive CAD is she agrees to proceed. I have noticed that she has a DO NOT RESUSCITATE order status. She was started on baby aspirin and I will continue same. She will be started on a small dose of statin. If her blood pressure remains stable, she will be started later today on a small dose of a short acting beta-bull with metoprolol tartrate. 2. Congestive failure, diastolic in nature. She will be given a small dose of IV furosemide/Lasix and will monitor blood pressure. Will need also to monitor BUN, creatinine and serum potassium. 3. History of hypertension. Blood pressure was low, hypotensive when she was admitted, but has improved and remains stable. Will stay away from the lisinopril/HCTZ. Will first initiate her on a beta bull. 4. Valvular heart disease. An echocardiogram done yesterday revealed moderate aortic stenosis as preliminary report and normal LVEF. This will be reviewed. 5. Active smoker and she is currently on nicotine patch. 6. Status post acute kidney injury, resolved. 7. Abnormal LFTs, significantly improved. We will continue to monitor that. She might benefit from a statin, but there is no need for intensive statin therapy. There is no need for statin therapy in view of her lipid profile. 8. History of COPD, on oxygen supplement. 9. History of heavy smoking and active, currently on nicotine patch. 10. Anemia secondary to GI bleed. The patient has received 3 units of packed red blood cells. She will benefit from GI workup is she agrees. It was a pleasure to participate in the care of Mrs. Briana Terry for her underlying cardiac condition. She appears to be stable and her condition has improved. Tomorrow, Dr. Eli, will be seeing her. The case was discussed with her hospitalist, Dr. Lozano.
--- NOTE | 2019-04-14 12:48 | REP ---
AP PORTABLE CHEST: 04/14/2019: Comparison: AP chest 04/13/2019, 04/12/2019, CT 04/12/2019. Clinical history: CHF. Findings: Cardiomegaly and vascular congestion again seen. However, there is now extensive airspace opacity and consolidation in the right base with bilateral effusions right greater than left. There is to be some fluid tracking in the minor fissure. Heart size enlarged. The aorta is calcified and tortuous. Airway intact. Impression: 1. Cardiomegaly with vascular redistribution and interstitial edema. There is a much more extensive and dense opacification now present in the right lower lobe representing atelectasis or consolidation with effusion. Much smaller left effusion. Whether this represents compressive atelectasis from pleural effusion, or superimposed pneumonia or both is uncertain. Clinical correlation advised. Electronically Signed by Irving Perkins MD 04/14/2019 08:33 P
[2019-04-14] MEDS: OPTH OU SCH (20:46)
[2019-04-14] MEDS: TRAVATAN Z 0.004% OU SCH (20:46)
[2019-04-14] MEDS: ACETAMINOPHEN TAB 650MG DOSE (2X325MG) PO PRN (21:23)
[2019-04-15] VITALS: BP 100/52
[2019-04-15 03:00] VITALS: BP 104/57
[2019-04-15 04:12] LABS: HEMATOCRIT 28.7 % (36.0-47.0); HEMOGLOBIN 8.9 g/dl (12.0-15.5); MEAN CORPUSCULAR HEMOGLOBIN 28.5 pg (27.0-33.0); PLATELET COUNT, AUTOMATED 263 10^3/uL (150-450); RED BLOOD COUNT 3.12 10^6/uL (4.00-5.40); WHITE BLOOD COUNT 9.1 10^3/uL (4.0-10.0)
[2019-04-15] MEDS: IPRATROPIUM 0.5MG/ALBUTEROL 2.5MG INH SOL UD 3ML (DUONEB)(J7620) NEB SCH ×6 (04:18→23:12)
[2019-04-15 04:33] LABS: CALCIUM LEVEL 8.9 MG/DL (8.8-10.2); CREATININE FOR GFR 1.29 MG/DL (0.55-1.30); GLOMERULAR FILTRATION RATE 42.6 (>39); MB/CK RELATIVE INDEX 3.26 (< OR =4); POTASSIUM SERUM 3.8 MEQ/L (3.5-5.1); TROPONIN I 1.12 NG/ML (< 0.10)
--- NOTE | 2019-04-15 06:54 | ECHO ---
DATE OF SERVICE: 04/13/2019 AGE: 78 REFERRING PROVIDER: Dr. Lani Lozano PATIENT ROOM NUMBER: [id number] REASON FOR THE ECHOCARDIOGRAM: Abnormal serum troponin, heart murmur. 2D MEASUREMENTS: IVS: 1.3 cm LV: 4.3 cm LVPW: 1.3 cm LA: 4.4 cm Aorta: 2.6 cm RV: 1.8 cm IVC: 2.9 cm DOPPLER MEASUREMENTS: Peak velocity across the aortic valve: 3.5 m/s Peak velocity across the LVOT: 0.95 m/s Peak gradient across the aortic valve: 50 mmHg Mean gradient across the aortic valve: 31 mmHg Mitral E: 1.4 Mitral A: 1.3 with a ratio of 1.1 Maximum tricuspid valve velocity: 2.9 m/s 2D COMMENTS: 1. Normal left ventricular size with mildly increased left ventricular wall thickness. Left ventricular systolic function is normal, estimated at 60-65%. 2. Mildly enlarged left atrium. Normal right atrium and right ventricle. 3. The atrial septum appeared to be normal without evidence of defect or shunt. 4. Normal aortic root. 5. Trace to small pericardial effusion noted, no evidence of cardiac tamponade. Right pleural effusion also noted. 6. Markedly calcified aortic valve with decrease in leaflet excursion. Mildly calcified mitral annulus with normal anterior mitral valve leaflet motion. Normal tricuspid valve and pulmonic valve. 7. The inferior vena cava is dilated, central venous pressure is most likely normal. Doppler, it detects trace to mild aortic regurgitation and mild to moderate mitral regurgitation. Mild tricuspid regurgitation also detected. The calculated pulmonary artery systolic pressure varies between 40-50 mmHg. Abnormal relaxation pattern was noted across the mitral valve annulus consistent with a pseudonormal pattern, left ventricular end-diastolic pressure might be elevated. IMPRESSION: 1. Normal global left ventricular systolic function with mild concentric left ventricular hypertrophy. There is some features of grade 2 left ventricular diastolic dysfunction. 2. Aortic valve sclerosis with trace to mild aortic radiation and moderate aortic stenosis. 3. Mitral annulus calcification with mildly enlarged left atrium and mild to moderate mitral regurgitation. 4. Mild tricuspid radiation with probably moderate pulmonary hypertension. 5. Trace to small pericardial effusion noted, no evidence of cardiac tamponade. Right pleural effusion also noted.
[2019-04-15 08:14] VITALS: BP 114/62
[2019-04-15] MEDS: CHLORHEXIDINE GLUCONATE 0.12 % 15ML UDC (PERIDEX ORAL RINSE) MT SCH (09:00)
[2019-04-15] MEDS: ENOXAPARIN 40 MG/0.4 ML SYRINGE (J1650) SC SCH (09:40)
[2019-04-15] MEDS: NICOTINE 21MG/24HR 1 EA TRANSDERMAL TD SCH (09:40)
[2019-04-15] MEDS: DOCUSATE SODIUM 100 MG CAP PO SCH ×2 (09:40→20:05)
[2019-04-15] MEDS: METOPROLOL SUCC *XL* 12.5MG PER 1/2 TAB (TopROL *XL*) PO SCH (09:40)
[2019-04-15] MEDS: ASPIRIN 81 MG ENTERIC TAB PO SCH (09:40)
[2019-04-15] MEDS: AZITHROMYCIN 250 MG TAB PO SCH (09:40)
[2019-04-15] MEDS: cefTRIAXone SOD 2 GM in D5W MINI-BAG PLUS 50 ML IV SCH (09:41)
[2019-04-15] MEDS: PANTOPRAZOLE 40MG TAB (PROTONIX) PO SCH ×2 (09:46→20:05)
[2019-04-15 16:37] VITALS: BP 109/56
--- NOTE | 2019-04-15 17:04 | IPNPDOC ---
Text Note Date of Service The patient was seen on 04/15/19. NOTE S: patient feeling better. ambulated with nurse today. no CP, no SOB. less c ough. Wants to go home. no fever. O: Vitals as below General: pleasant NAD AAOx3 Heart tachycardic at 110 with murmur LCTA with rales, no rhonchi Ext: trace edema A/P: Hypotension without tachycardia - RESOLVED Suspect due to BP medications and not from UGI bleed (as no tachycardia) temporary improvement with albumin transfusion last night [employer] Sales Engineer and cardiology consulted and assistance appreciated d/c IVF. Transfer from ICU to PCU Elevated troponin - probable demand ischemia (NSTEMI Type II) due to hypotension, anemia from chronic UGI bleed with possible underlying CAD Patient usually sees Dr Eli - will need outpatient follow up of CAD/stress test or cath. Start ASA 81mg and metoprolol succ 12.5mg daily with hold parameters now that BP is stabilized. Troponins trending down. Aortic Stenosis - moderate - cardiology consulted. start metoprolol 12.5mg daily and if BP tolerates, add back low dose APRYL-I. avoid diuretics unless worsening CHF Acute diastolic CHF due to IVF for hypotension resuscitation - given one dose IV lasix on 04/13 and 04/15; monitor Chronic bronchitis with underlying COPD without exacerbation - started on rocephin/azithromycin. change to augmentin; IS PEP, nebs symptomatic anemia due to chronic blood loss from probable chronic UGI bleed transfuse 2 unit pRBC on 04/12/19 transfuse 1 unit pRBC on 04/13/19 with lasix after transfusion will need outpatient EGD. Suspect gastritis from NSAID, Caffeine and tobacco use Bed Bug infestation - seen in ED; contact isolation. DVT prophylaxis: lovenox CODE STATUS: DNR Disposition: possible discharge monday or monday if remains hemodynamically stable. VS,Fishbone, I+O VS, Fishbone, I+O Laboratory Tests 04/15/19 03:35 Red Blood Count 3.12 L, Mean Corpuscular Volume 92.0, Mean Corpuscular Hemoglobin 28.5, Mean Corpuscular Hemoglobin Concent 31.0 L, Red Cell Distribution Width 16.5 H, Calcium Level 8.9, Total Creatine Kinase 92 Vital Signs Date Time Temp Pulse Resp B/P (MAP) Pulse Ox O2 Delivery O2 Flow Rate FiO2 04/15/19 09:40 106 114/62 04/15/19 08:14 97.9 18 93 04/15/19 06:00 2.0 04/14/19 04:03 Nasal Cannula I&O- Last 24 Hours up to 6 AM 04/15/19 06:00 Intake Total 1855 ml Output Total 3625 ml Balance -1770 ml ROSA RAMOS DO Apr 15, 2019 14:23
[2019-04-15 20:00] VITALS: BP 92/58
[2019-04-15] MEDS: AUGMENTIN 875 MG TAB PO SCH (20:05)
[2019-04-15] MEDS: OPTH OU SCH (20:09)
[2019-04-15] MEDS: TRAVATAN Z 0.004% OU SCH (20:09)
[2019-04-15] MEDS: BENZONATATE 100 MG CAP PO PRN (23:44)
[2019-04-16] VITALS: BP 105/62
[2019-04-16 03:20] LABS: HEMATOCRIT 26.5 % (36.0-47.0); HEMOGLOBIN 8.1 g/dl (12.0-15.5); MEAN CORPUSCULAR HEMOGLOBIN 27.1 pg (27.0-33.0); MEAN CORPUSCULAR HGB CONC 30.6 g/dl (32.0-36.5); MEAN CORPUSCULAR VOLUME 88.6 fl (80.0-96.0); PLATELET COUNT, AUTOMATED 295 10^3/uL (150-450); RED BLOOD COUNT 2.99 10^6/uL (4.00-5.40); WHITE BLOOD COUNT 10.2 10^3/uL (4.0-10.0)
[2019-04-16 03:46] LABS: CALCIUM LEVEL 8.3 MG/DL (8.8-10.2); CREATININE FOR GFR 1.13 MG/DL (0.55-1.30); GLOMERULAR FILTRATION RATE 49.6 (>39); MB/CK RELATIVE INDEX 2.3 (< OR =4); POTASSIUM SERUM 4.1 MEQ/L (3.5-5.1); TROPONIN I 0.75 NG/ML (< 0.10)
[2019-04-16 04:00] VITALS: BP 109/69
[2019-04-16] MEDS: IPRATROPIUM 0.5MG/ALBUTEROL 2.5MG INH SOL UD 3ML (DUONEB)(J7620) NEB SCH ×6 (04:00→23:18)
[2019-04-16] MEDS: BENZONATATE 100 MG CAP PO PRN (05:22)
[2019-04-16 06:00] VITALS: BP 139/81
[2019-04-16] MEDS: PANTOPRAZOLE 40MG TAB (PROTONIX) PO SCH ×2 (09:07→20:23)
[2019-04-16] MEDS: METOPROLOL SUCC *XL* 12.5MG PER 1/2 TAB (TopROL *XL*) PO SCH (09:08)
[2019-04-16] MEDS: AZITHROMYCIN 250 MG TAB PO SCH (09:08)
[2019-04-16] MEDS: ASPIRIN 81 MG ENTERIC TAB PO SCH (09:08)
[2019-04-16] MEDS: ENOXAPARIN 40 MG/0.4 ML SYRINGE (J1650) SC SCH (09:08)
[2019-04-16] MEDS: AUGMENTIN 875 MG TAB PO SCH ×2 (09:08→20:23)
[2019-04-16] MEDS: DOCUSATE SODIUM 100 MG CAP PO SCH ×2 (09:08→20:23)
[2019-04-16] MEDS: NICOTINE 21MG/24HR 1 EA TRANSDERMAL TD SCH (09:09)
--- NOTE | 2019-04-16 09:11 | REP ---
PA and lateral chest: Comparison is a 2018. There are bilateral pleural effusions, not significantly changed. The previous vascular redistribution has resolved. Cardiac size is upper normal. The indira, mediastinum, and skeletal structures are unremarkable. Impression: The vascular redistribution has resolved. There are persisting bilateral pleural effusions. Electronically Signed by Les Weldon MD 04/16/2019 09:03 A
[2019-04-16 14:00] VITALS: BP 104/62
--- NOTE | 2019-04-16 15:27 | IPNPDOC ---
Text Note Date of Service The patient was seen on 04/16/19. NOTE Subjective: Patient seen and examined at bedside. no CP, no SOB. less cough. Objective: Vitals as below General - NAD, sitting up in bed, well groomed Eyes - PERRLA, EOM intact Neck - No noticeable or palpable swelling, redness or rash around throat or on face Lymph Nodes - No lymphadenopathy Cardiovascular - RRR no m/r/g, no JVD, no carotid bruits Lungs - Clear to auscltation, no use of acessory muscles, no crackles or wheezes. Skin - No rashes, skin warm and dry, no erythematous areas Abdomen - Normal bowel sounds, abdomen soft and nontender Extremeties - No edema, cyanosis or clubbing Musculo Skeletal - 5/5 strength, normal range of motion, no swollen or erythematous joints. Neurological Alert and oriented x 3, CN 2-12 grossly intact A/P: #Hypotension w - RESOLVED -Suspect due to BP medications - Transfer from ICU to PCU #Elevated troponin - 2/2 demand ischemia (NSTEMI Type II) due to hypotension, anemia from chronic UGI bleed with possible underlying CAD -Patient usually sees Dr Eli - will need outpatient follow up of CAD/stress test or cath. -Start ASA 81mg and metoprolol succ 12.5mg daily with hold parameters now that BP is stabilized. -Troponins trending down. #Aortic Stenosis - moderate - cardiology consulted. start metoprolol 12.5mg daily and if BP tolerates, add back low dose APRYL-I. - avoid diuretics unless worsening CHF #Acute diastolic CHF due to IVF for hypotension resuscitation - given one dose IV lasix on 04/13 and 04/15; monitor #Chronic bronchitis with underlying COPD without exacerbation - started on rocephin/azithromycin. change to augmentin at time of DC; IS PEP, nebs #symptomatic anemia due to chronic blood loss from probable chronic UGI bleed -transfuse 2 unit pRBC on 04/12/19 -transfuse 1 unit pRBC on 04/13/19 with lasix after transfusion - Suspect gastritis from NSAID, Caffeine and tobacco use -GI consulted, f/u guiac -on protonix 40 PO BID -repeat Hb in am #Bed Bug infestation - seen in ED; contact isolation. DVT prophylaxis: lovenox CODE STATUS: DNR Disposition: possible discharge monday if remains hemodynamically stable. Awaiting GI recs VS,Krupae, I+O VS, Dustinbone, I+O Laboratory Tests 04/16/19 03:09 Red Blood Count 2.99 L, Mean Corpuscular Volume 88.6, Mean Corpuscular Hemoglobin 27.1, Mean Corpuscular Hemoglobin Concent 30.6 L, Red Cell Distribution Width 16.5 H, Calcium Level 8.3 L, Total Creatine Kinase 87 Vital Signs Date Time Temp Pulse Resp B/P (MAP) Pulse Ox O2 Delivery O2 Flow Rate FiO2 04/16/19 09:08 67 139/81 04/16/19 06:00 97.2 18 96 04/15/19 06:00 2.0 04/14/19 04:03 Nasal Cannula I&O- Last 24 Hours up to 6 AM 04/16/19 06:00 Intake Total 1400 ml Output Total 1750 ml Balance -350 ml TAMRA BARCENAS MD Apr 16, 2019 15:27
[2019-04-16] MEDS: MIRALAX *UNIT DOSE* 17GM PACKET PO SCH (15:52)
[2019-04-16] MEDS: OPTH OU SCH (20:24)
[2019-04-16] MEDS: TRAVATAN Z 0.004% OU SCH (20:24)
[2019-04-16 22:00] VITALS: BP 107/63
[2019-04-17] MEDS: IPRATROPIUM 0.5MG/ALBUTEROL 2.5MG INH SOL UD 3ML (DUONEB)(J7620) NEB SCH ×6 (02:24→20:27)
[2019-04-17 06:00] VITALS: BP 110/63
[2019-04-17 06:25] LABS: HEMATOCRIT 28.9 % (36.0-47.0); HEMOGLOBIN 9.1 g/dl (12.0-15.5); MEAN CORPUSCULAR HEMOGLOBIN 28.3 pg (27.0-33.0); MEAN CORPUSCULAR HGB CONC 31.5 g/dl (32.0-36.5); PLATELET COUNT, AUTOMATED 326 10^3/uL (150-450); RED BLOOD COUNT 3.21 10^6/uL (4.00-5.40); WHITE BLOOD COUNT 11.1 10^3/uL (4.0-10.0)
[2019-04-17 06:53] LABS: CALCIUM LEVEL 8.9 MG/DL (8.8-10.2); CREATININE FOR GFR 1.03 MG/DL (0.55-1.30); GLOMERULAR FILTRATION RATE 55.2 (>39)
[2019-04-17] MEDS: MIRALAX *UNIT DOSE* 17GM PACKET PO SCH (09:00)
[2019-04-17] MEDS: ENOXAPARIN 40 MG/0.4 ML SYRINGE (J1650) SC SCH (09:00)
[2019-04-17] MEDS: METOPROLOL SUCC *XL* 12.5MG PER 1/2 TAB (TopROL *XL*) PO SCH (10:59)
[2019-04-17] MEDS: ASPIRIN 81 MG ENTERIC TAB PO SCH (10:59)
[2019-04-17] MEDS: NICOTINE 21MG/24HR 1 EA TRANSDERMAL TD SCH (10:59)
[2019-04-17] MEDS: AUGMENTIN 875 MG TAB PO SCH ×2 (11:00→20:35)
[2019-04-17] MEDS: DOCUSATE SODIUM 100 MG CAP PO SCH ×2 (11:00→20:36)
[2019-04-17] MEDS: PANTOPRAZOLE 40MG TAB (PROTONIX) PO SCH ×2 (11:00→20:36)
[2019-04-17] MEDS ORDERED: ALBUTEROL SULFATE 2.5 MG/0.5 ML INH NEB SOLN As Ordered ONE (14:02)
[2019-04-17] MEDS ORDERED: PROPOFOL 200 MG/20 ML VIAL As Ordered ONE (14:06)
[2019-04-17] MEDS ORDERED: LIDOCAINE 2% INJ 100 MG/5 ML SDV (FOR ANES.) As Ordered ONE (14:06)
--- NOTE | 2019-04-17 14:34 | ROOR ---
Patient Name: Briana Terry Procedure Date: 04/17/2019 2:23 PM Date of : 1940 Age: 78 Room: [facility] Gender: Female Note Status: Finalized Procedure: Upper GI endoscopy Indications: Iron deficiency anemia, Recent gastrointestinal bleeding Providers: Myke Lee MD Referring MD: 1. No Referring Physician 1. No Referring Physician, Admin. Requesting Provider: Medicines: Monitored Anesthesia Care Complications: No immediate complications. Procedure: Pre-Anesthesia Assessment: - The heart rate, respiratory rate, oxygen saturations, blood pressure, adequacy of pulmonary ventilation, and response to care were monitored throughout the procedure. The Endoscope was introduced through the mouth, and advanced to the second part of duodenum. The upper GI endoscopy was accomplished without difficulty. The patient tolerated the procedure well. Findings: The Z-line was regular and was found 40 cm from the incisors. Localized moderate inflammation characterized by congestion (edema), erosions, erythema and aphthous ulcerations was found in the gastric antrum. Localized mild inflammation characterized by congestion (edema), erosions and erythema was found in the duodenal bulb and in the first portion of the duodenum. The exam was otherwise without abnormality. Impression: - Z-line regular, 40 cm from the incisors. - Gastritis. - Duodenitis. - The examination was otherwise normal. - No specimens collected. - The examination was otherwise normal. Recommendation: - Patient has a contact number available for emergencies. The signs and symptoms of potential delayed complications were discussed with the patient. Return to normal activities tomorrow. Written discharge instructions were provided to the patient. - [facility]. - Use Prilosec (omeprazole) 40 mg PO daily. - Return to referring physician. - The findings and recommendations were discussed with the patient's family. Myke Lee MD Myke Lee MD 04/17/2019 2:33:48 PM Electronically signed by Myke Lee MD Number of Addenda: 0 Note Initiated On: 04/17/2019 2:23 PM Estimated Blood Loss: Estimated blood loss: none.
[2019-04-17] MEDS ORDERED: ALBUTEROL SULFATE 2.5 MG/0.5 ML INH NEB SOLN INH ONE (14:45)
[2019-04-17 15:13] VITALS: BP 102/60
--- NOTE | 2019-04-17 15:59 | IPNPDOC ---
Text Note Date of Service The patient was seen on 04/17/19. NOTE Subjective: Patient seen and examined at bedside. no CP, no SOB. less cough. Objective: Vitals as below General - NAD, sitting up in bed, well groomed Eyes - PERRLA, EOM intact Neck - No noticeable or palpable swelling, redness or rash around throat or on face Lymph Nodes - No lymphadenopathy Cardiovascular - RRR no m/r/g, no JVD, no carotid bruits Lungs - Clear to auscltation, no use of acessory muscles, no crackles or wheezes. Skin - No rashes, skin warm and dry, no erythematous areas Abdomen - Normal bowel sounds, abdomen soft and nontender Extremeties - No edema, cyanosis or clubbing Musculo Skeletal - 5/5 strength, normal range of motion, no swollen or erythematous joints. Neurological Alert and oriented x 3, CN 2-12 grossly intact A/P: #Hypotension w - RESOLVED -Suspect due to BP medications - Transfer from ICU to PCU #Elevated troponin - 2/2 demand ischemia (NSTEMI Type II) due to hypotension, anemia from chronic UGI bleed with possible underlying CAD -Patient usually sees Dr Eli - will need outpatient follow up of CAD/stress test or cath. -Start ASA 81mg and metoprolol succ 12.5mg daily with hold parameters now that BP is stabilized. -Troponins trending down. #Aortic Stenosis - moderate - cardiology consulted. start metoprolol 12.5mg daily and if BP tolerates, add back low dose APYRL-I. - avoid diuretics unless worsening CHF #Acute diastolic CHF due to IVF for hypotension resuscitation - given one dose IV lasix on 04/13 and 04/15; monitor #Chronic bronchitis with underlying COPD without exacerbation - started on rocephin/azithromycin. change to augmentin at time of DC; IS PEP, nebs #symptomatic anemia due to chronic blood loss from probable chronic UGI bleed -transfuse 2 unit pRBC on 04/12/19 -transfuse 1 unit pRBC on 04/13/19 with lasix after transfusion - patient underwent EGD thia am, f/u GI recs -repeat Hb in am #Bed Bug infestation - seen in ED; contact isolation. DVT prophylaxis: lovenox CODE STATUS: DNR Disposition: possible discharge monday if remains hemodynamically stable. Awaiting GI recs VS,Fishbone, I+O VS, Fishbone, I+O Laboratory Tests 04/17/19 06:04 Red Blood Count 3.21 L, Mean Corpuscular Volume 90.0, Mean Corpuscular Hemoglobin 28.3, Mean Corpuscular Hemoglobin Concent 31.5 L, Red Cell Distribution Width 16.2 H, Calcium Level 8.9 Vital Signs Date Time Temp Pulse Resp B/P (MAP) Pulse Ox O2 Delivery O2 Flow Rate FiO2 04/17/19 15:13 97.9 100 20 102/60 (74) 93 04/15/19 06:00 2.0 04/14/19 04:03 Nasal Cannula I&O- Last 24 Hours up to 6 AM 04/17/19 06:00 Intake Total 1043 ml Balance 1043 ml TAMRA BARCENAS MD Apr 17, 2019 15:59
[2019-04-17] MEDS: BENZONATATE 100 MG CAP PO PRN (17:58)
[2019-04-17] MEDS: TRAVATAN Z 0.004% OU SCH (20:36)
[2019-04-17] MEDS: OPTH OU SCH (20:36)
[2019-04-17 22:00] VITALS: BP 113/63
--- NOTE | 2019-04-17 22:47 | CR ---
DATE OF CONSULTATION: 04/16/2019 This is a 78-year-old white female who is being seen by gastrointestinal (GI) for evaluation of anemia of unclear etiology. The patient was admitted due to shortness of breath and chest pain, which started approximately 24 hours prior to admission. She had no complaints of nausea, vomiting, fevers, night sweats, or shaking chills. The patient apparently states that she has had black tarry stools approximately 48 hours prior to admission. She has never had any upper endoscopy. She has been on chronic baby aspirin therapy. She is on lisinopril and hydrochlorothiazide, meloxicam 7.5 mg twice a day, prednisolone ophthalmic suspension. ALLERGIES: No known declared allergies. PAST MEDICAL HISTORY: Positive for: 1. Hypertension. 2. Chronic obstructive pulmonary disease (COPD). 3. Anemia for approximately 4 months. 4. Osteoarthritis of her back. 5. Glaucoma. FAMILY HISTORY: Positive for heart disease. Mother at age 58. Father of old age. SOCIAL HISTORY: The patient smokes one pack a day. The patient drinks coffee. No alcohol abuse. PAST SURGICAL HISTORY: Positive for: 1. Appendectomy. 2. Total abdominal hysterectomy. REVIEW OF SYSTEMS: A 10-point review of systems is noncontributory. PHYSICAL EXAMINATION: GENERAL: Well-developed, well-nourished white female in no obvious acute distress who appears stated age. CHEST: Clear to auscultation. CARDIOVASCULAR: Shows a regular rhythm. No murmurs or gallops. Normal physiological split, S1 to S2. ABDOMEN: Soft, nontender. No masses, guarding, rebound, hepatosplenomegaly. Bowel sounds positive. LABORATORY STUDIES: On admission include a CBC on admission with a count of 7.7 and 26.0. Platelets were 394,000. Patient had a white count 12,600 on admission. The patient had a chemistry profile on admission, which showed elevation of troponins of 1.37. CPK-MB was 9.15. The patient's coagulation profile was normal. She received 3 units of packed cells and 2 units of 25% albumin. The patient apparently was in intensive care unit (ICU) at this time. Due to the elevated troponins, Dr. Zee saw her of cardiology, and he did not feel the patient had a myocardial infarction, at this time just a demand ischemic event. At this point the patient is being seen by GI for probable upper endoscopy at this point due to history of chronic nonsteroidal use for her chronic back pain. PLAN: Set the patient up for an upper endoscopy in outpatient procedures tomorrow after outpatient procedures. The patient has been made nothing by mouth. This has been discussed with the patient, and she is agreeable at this time.
[2019-04-18] MEDS: IPRATROPIUM 0.5MG/ALBUTEROL 2.5MG INH SOL UD 3ML (DUONEB)(J7620) NEB SCH ×5 (04:00→15:07)
[2019-04-18 06:00] VITALS: BP 102/54
[2019-04-18 06:25] LABS: HEMATOCRIT 27.1 % (36.0-47.0); HEMOGLOBIN 8.4 g/dl (12.0-15.5); MEAN CORPUSCULAR HEMOGLOBIN 28.1 pg (27.0-33.0); MEAN CORPUSCULAR VOLUME 90.6 fl (80.0-96.0); PLATELET COUNT, AUTOMATED 320 10^3/uL (150-450); RED BLOOD COUNT 2.99 10^6/uL (4.00-5.40); WHITE BLOOD COUNT 9.1 10^3/uL (4.0-10.0)
[2019-04-18 06:55] LABS: CALCIUM LEVEL 8.9 MG/DL (8.8-10.2); CREATININE FOR GFR 1.01 MG/DL (0.55-1.30); GLOMERULAR FILTRATION RATE 56.4 (>39)
[2019-04-18] MEDS: DOCUSATE SODIUM 100 MG CAP PO SCH (09:00)
[2019-04-18] MEDS: MIRALAX *UNIT DOSE* 17GM PACKET PO SCH (09:00)
[2019-04-18] MEDS: PANTOPRAZOLE 40MG TAB (PROTONIX) PO SCH (09:51)
[2019-04-18] MEDS: AUGMENTIN 875 MG TAB PO SCH (09:51)
[2019-04-18] MEDS: ASPIRIN 81 MG ENTERIC TAB PO SCH (09:51)
[2019-04-18] MEDS: NICOTINE 21MG/24HR 1 EA TRANSDERMAL TD SCH (09:52)
[2019-04-18] MEDS: ENOXAPARIN 40 MG/0.4 ML SYRINGE (J1650) SC SCH (09:52)
[2019-04-18 09:53] VITALS: BP 111/62
[2019-04-18] MEDS: METOPROLOL SUCC *XL* 12.5MG PER 1/2 TAB (TopROL *XL*) PO SCH (09:53)
[2019-04-18 14:00] VITALS: BP 94/57
[2019-04-18] MEDS ORDERED: AMOX875T2 PO (16:37)
[2019-04-18] MEDS ORDERED: COLA100C5 PO (16:37)
[2019-04-18] MEDS ORDERED: PEG1POW PO (16:37)
[2019-04-18] MEDS ORDERED: METO1TAB32 PO (16:37)
[2019-04-18] MEDS ORDERED: BENZ-18 PO (16:37)
[2019-04-18] MEDS ORDERED: PANT40TA3 PO (16:37)
--- NOTE | 2019-04-18 18:50 | DS.PDOC ---
Discharge Summary General Date of Admission Apr 12, 2019 at 11:20 Date of Discharge April 18, 2019 Primary Care Physician: Joshua Specialist/Consultants Involve: Myke Lee Specialist/Consultants Involve Dr. Guru Zee of the Cardiology service Discharge Summary PROCEDURES PERFORMED DURING STAY: EGD; transfusion with packed red blood cells, echocardiogram. ADMITTING DIAGNOSES: 1. ACUTE BLOOD LOSS ANEMIA; HYPOTENSION. DISCHARGE DIAGNOSES: 1. ACUTE BLOOD LOSS ANEMIA resolved, HYPOTENSION-RESOLVED; Gastritis, Duodenitis; NSTEMI type II--demand ischemia; chronic diastolic CHF; pulmonary hypertension; moderate Aortic Stenosis; Chronic bronchitis, dyslipidemia, essential hypertension, osteoarthritis, glaucoma, bed bug infestation. COMPLICATIONS/CHIEF COMPLAINT: Cardiac Ischemia, Infestation By Bed Bug,Upper Gi. HISTORY OF PRESENT ILLNESS/HOSPITAL COURSE: This is a 78-year-old female who was brought to the emergency room. She had chest pain and shortness of breath. She came to the ER as it continued unrelieved. It was accompanied by melena and fatigue. Upon initial evaluation, she was noted to be hypotensive and to have notable decrease in hemoglobin. Initial intervention included IV fluids and transfusion with packed red blood cells. Concern was raised for GI blood loss in particular. Hemoglobin was down to 7.7. Again, the patient stabilized with transfusion and IV hydration. She did undergo evaluation by upper endoscopy. She was noted to have areas of gastritis and duodenitis. She is on proton pump inhibitor. Troponin was noted to be elevated up to 2.19. Patient was seen by cardiology service; this was attributed to ischemic demand due to anemia. Patient did undergo evaluation by echocardiogram; ejection fraction was noted to be 60-65%. There are also findings of an elevated pulmonary arterial systolic pressure consistent with moderate pulmonary hypertension. Note was also made of grade 2 diastolic dysfunction and moderate aortic stenosis. The patient was noted in the ER to have bedbug infestation. This did not require any particular intervention and that bugs were not evident upon her arrival to the floor. At the time of discharge, the patient was cleared to be on aspirin. She will need to follow-up with cardiology service to discuss APRYL inhibitor, beta bull and statin. Patient had slight low blood pressures and slightly elevated LFTs. She will also need to follow-up with the GI service in about one month.. DISCHARGE MEDICATIONS: Please see below. ALLERGIES: Please see below. PHYSICAL EXAMINATION ON DISCHARGE: VITAL SIGNS: Please see below. GENERAL: Awake, alert, conversant up in chair. HEENT: Neck was supple with no adenopathy or thyromegaly CARDIOVASCULAR EXAMINATION: Regular rate and rhythm with a normal S1 and S2 RESPIRATORY EXAMINATION: Clear to auscultation ABDOMINAL EXAMINATION: Soft, nontender, moderate central obesity EXTREMITIES: No peripheral edema, pedal pulses palpable SKIN: No pallor or lesions NEUROLOGICAL EXAMINATION: No focal neuromotor or sensory deficit LABORATORY DATA: Please see below. IMAGING: PROGNOSIS: ACTIVITY: As tolerated. DIET: Heart healthy DISCHARGE PLAN: The patient is stable for discharge to home. She will remain on proton pump inhibitor until follow-up with the GI service. Additionally, she will need to follow-up with her group sales representative, Dr. Eli to discuss medical management; patient was not able to have APRYL inhibitor or beta bull or statin at discharge due to low blood pressures and mildly elevated liver function tests. She was cleared by GI to resume her aspirin. DISPOSITION: . DISCHARGE INSTRUCTIONS: 1. . ITEMS TO FOLLOWUP ON ON OUTPATIENT: 1. . DISCHARGE CONDITION: Stable. TIME SPENT ON DISCHARGE: Greater than 40 minutes. Vital Signs/I&Os Vital Signs Date Time Temp Pulse Resp B/P (MAP) Pulse Ox O2 Delivery O2 Flow Rate FiO2 04/18/19 14:00 97.6 103 22 94/57 (69) 89 04/15/19 06:00 2.0 04/14/19 04:03 Nasal Cannula l I&O- Last 24 Hours up to 6 AM 04/18/19 06:00 Intake Total 1070 ml Balance 1070 ml Laboratory Data Labs 24H Laboratory Tests 2 04/18/19 06:01: Nucleated Red Blood Cells % (auto) 0.0, Anion Gap 3L, Glomerular Filtration Rate 56.4, Blood Urea Nitrogen 17, Creatinine 1.01, Sodium Level 139, Potassium Level 4.0, Chloride Level 107, Carbon Dioxide Level 29, Calcium Level 8.9 CBC/BMP Laboratory Tests 04/18/19 06:01 Red Blood Count 2.99 L, Mean Corpuscular Volume 90.6, Mean Corpuscular Hemog lobin 28.1, Mean Corpuscular Hemoglobin Concent 31.0 L, Red Cell Distribution Width 16.0 H, Calcium Level 8.9 Microbiology Microbiology 04/17/19 Stool Occult Blood (LAUREN) - Final, Complete Discharge Medications Scheduled Amoxicillin/Potassium Clav (Amox-Clav 875-125 mg Tablet) 1 Each Tablet, 875 MG PO BID Aspirin (Aspir 81) 81 Mg Tablet.dr, 81 MG PO DAILY, (Reported) Docusate Sodium (Colace) 100 Mg Capsule, 100 MG PO BID Metoprolol Succinate (Metoprolol Succinate) 25 Mg Tab.er.24h, 12.5 MG PO DAILY Pantoprazole Sodium (Pantoprazole Sodium) 40 Mg Tablet.dr, 40 MG PO BID Polyethylene Glycol 3350 (Polyethylene Glycol 3350) 17 Gm Powd.pack, 1 PKT PO DAILY Prednisolone Acetate (Prednisolone Acetate 1% Opth Susp) 5 Ml Drops.susp, QHS, (Reported) Travoprost (Travatan Z) 0.004% 2.5ML Drops, 1 DROP OU QHS, (Reported) Scheduled PRN Benzonatate (Benzonatate) 100 Mg Capsule, 200 MG PO Q6HP PRN for cough Allergies Coded Allergies: No Known Allergies (Unverified , 04/12/19) ANDI CRUZ MD Apr 18, 2019 18:50
== END 2019-04-18 18:33 | disposition home or self-care (01) | DRG 280 ==
LOC: M ED 03:52 → M ED INP 11:20 → M ICU 13:46 → M MSPAV 04-16 05:32
PROVIDERS: ADMIT Family Medicine; ATTEND Internal Medicine
PROC: 30233N1 Transfusion of Nonautologous Red Blood Cells into Peripheral Vein, Percutaneous Approach (ICD-10-PCS; 2019-04-12)
PROC: 0DJ08ZZ Inspection of Upper Intestinal Tract, Via Natural or Artificial Opening Endoscopic (ICD-10-PCS; principal; 2019-04-17 14:45)
DX: I21.A1 Myocardial infarction type 2 (principal); I50.31 Acute diastolic (congestive) heart failure; K92.2 Gastrointestinal hemorrhage, unspecified; N17.9 Acute kidney failure, unspecified; D62 Acute posthemorrhagic anemia; I11.0 Hypertensive heart disease with heart failure; F17.210 Nicotine dependence, cigarettes, uncomplicated; J44.9 Chronic obstructive pulmonary disease, unspecified; I35.0 Nonrheumatic aortic (valve) stenosis; Z66 Do not resuscitate; K29.70 Gastritis, unspecified, without bleeding; K29.80 Duodenitis without bleeding; H40.9 Unspecified glaucoma; I70.0 Atherosclerosis of aorta; Z79.82 Long term (current) use of aspirin; Z79.52 Long term (current) use of systemic steroids; Z79.899 Other long term (current) drug therapy; Z90.49 Acquired absence of other specified parts of digestive tract; Z90.710 Acquired absence of both cervix and uterus; Z79.1 Long term (current) use of non-steroidal anti-inflammatories (NSAID); Z99.81 Dependence on supplemental oxygen

== ENCOUNTER 2019-04-24 17:11 | Inpatient (IN) | payer MEDICARE ==
[~2019-04-24] VITALS: Ht 157.5 cm; Wt 84.0 kg
[~2019-04-24 17:11] MED LIST changes: -BENZ200C70 PO; -FERR325T81 PO; -FURO20TA2; -NAPR-837 PO; -PANT-23 PO; -SUCR1TA PO
[2019-04-24] MEDS ORDERED: PANTOPRAZOLE 40MG INJ (PROTONIX) (C9113) IV ONE (18:30)
[2019-04-24] MEDS ORDERED: AMOX875T2 PO (18:39)
[2019-04-24] MEDS ORDERED: BENZ200C70 PO (18:39)
[2019-04-24] MEDS ORDERED: PANT-23 PO (18:39)
[2019-04-24] MEDS ORDERED: METO1TAB32 PO (18:39)
[2019-04-24] MEDS ORDERED: TRAV04OPD OU (18:39)
[2019-04-24] MEDS: PANTOPRAZOLE SODIUM 40 MG in D5W 50 ML IV SCH ×2 (18:52→23:20)
[2019-04-24 18:55] LABS: CK-MB VALUE MASS 1.3 NG/ML (<3.6); MB/CK RELATIVE INDEX 3.82 (< OR =4); TROPONIN I 0.05 NG/ML (< 0.10)
--- NOTE | 2019-04-24 21:19 | HPEPDOC ---
General Date of Admission Date of Service: Apr 24, 2019 Primary Care Physician: A Chief Complaint The patient is a 78-year-old female admitted with a reason for visit of Bleeding. Source: Patient History of Present Illness 78 F with HTN, COPD, Chronic anemia, OA, recent admission for acute blood loss anemia presumed from GI tract with NSTEMI type 2 presents with complaints of progressively worsening SOB and weakness over the past 4 days. Patient went to her PMD today for checkup and blood work was done showing anemia to 6.1 and she was sent back to the ED. She notes having brown stools at time of discharge but started to have black stools on 04/20, including 2 episodes of dark loose bowel movements this morning. She denies any NSAID use, falls, trauma, BRBPR, bruising, abd pain, n/v/d. Last admission: Discharged 04/12 after upper endoscopy by Dr. Lee showing gastritis and duodenitis. Trop elevation likely type 2 NC seen by cards last admission, TTE: EF 60-65%, moderate Pulm HTN, grade 2 diastolic dysfunction and moderate aortic stenosis. Home Medications Scheduled Amoxicillin/Potassium Clav (Amox-Clav 875-125 mg Tablet) 1 Each Tablet, 875 MG PO BID, (Reported) FILLED 04/18/19 FOR 7 DAYS Aspirin (Aspir 81) 81 Mg Tablet.dr, 81 MG PO DAILY, (Reported) Metoprolol Succinate (Metoprolol Succinate) 25 Mg Tab.er.24h, 12.5 MG PO DAILY, (Reported) Pantoprazole Sodium (Pantoprazole Sodium) 40 Mg Tablet.dr, 40 MG PO BID, (Reported) Travoprost (Travatan Z) 0.004% 2.5ML Drops, 1 DROP OU QHS, (Reported) Scheduled PRN Benzonatate (Benzonatate) 200 Mg Capsule, 200 MG PO TID PRN for COUGH, (Reported) Allergies Coded Allergies: No Known Allergies (Unverified , 04/12/19) Past Medical History Medical History Medical History HTN COPD Chronic anemia x 4 months OA back Glaucoma Surgical History Past surgical hx: LEONOR, Appy, right ankle fx Family History Family history: Mother [place] age 58, father old age Social History * Smoker: former Smoker Alcohol: Denies Drugs: denies smokes 1-1.5 ppd x60 yrs, states she quit 2 weeks ago, +caffeine/coffee use, no etOH use A-FIB/CHADSVASC A-FIB History Current/History of A-Fib/PAF?: No Review of Systems Constitutional: Reports: Weakness, Fatigue; Denies: Chills, Fever Eyes: Denies: Pain, Vision change ENT: Denies: Head Aches, Sinus Congestion Skin: Denies: Rash, Bruising Pulmonary: Reports: Dyspnea, Cough; Denies: Pleuritic Chest Pain Cardiovascular: Reports: Orthopnea, Edema; Denies: Chest Pain, Palpitations Gastrointestinal: Denies: Nausea, Vomiting, Abdominal Pain Genitourinary: Denies: Dysuria, Retention Hematologic: Denies: Bruising, Petecchia Endocrine: Denies: Polydipsia Musculoskeletal: Denies: Neck Pain, Back Pain Neurological: Reports: Weakness; Denies: Numbness Psych: Denies: Anxiety, Depression, Thoughts of Self Harm Physical Examination General Exam: Positive: Alert, Cooperative, No Acute Distress Eye Exam: Positive: EOMI ENT Exam: Positive: Atraumatic Neck Exam: Negative: JVD Chest Exam: Positive: Clear to auscultation, Normal air movement Heart Exam: Positive: Tachycardic, Regular Rhythm, Normal S1, Normal S2, Murmurs Abdomen Exam: Positive: Normal bowel sounds, Soft, Tenderness; Negative: Mass Extremity Exam: Negative: Clubbing Neuro Exam: Positive: Normal Speech, Normal Tone, Sensation Intact Psych Exam: Positive: Mental status NL, Mood NL Other physical findings General: Elderly female, appears pale, NAD. HEENT: MMM, conjuntival pallor Cardiovascular: systolic murmur 2/6 in right upper sternal boarder Rectal exam: good tone, dark/tarry stool noted in rectal vault. Ext: +LE edema Vital Signs Vital Signs Date Time Temp Pulse Resp B/P (MAP) Pulse Ox O2 Delivery O2 Flow Rate FiO2 04/24/19 19:49 99.3 105 18 91/50 (64) 96 Room Air Laboratory Data Labs 24H Laboratory Tests 2 04/24/19 15:10: Total Creatine Kinase 34, Creatine Kinase MB 1.3, Creatine Kinase MB Relative Index 3.82, Troponin I 0.05 Echocardiogram TTE: EF 60-65%, moderate Pulm HTN, grade 2 diastolic dysfunction and moderate aortic stenosis Assessment/Plan 78 F with HTN, COPD, Chronic anemia, OA, recent admission for acute blood loss anemia with EGD presents with complains of progressive SOB associated with melena, found to have Hgb 6.1, decreased from 8.4 on 04/18. Patient admitted for likely Upper GI bleeding and acute blood loss anemia. Plan / VTE VTE Prophylaxis Ordered?: No VTE Exclusion Pharmacological: Active Bleeding Plan Plan Acute Blood loss anemia, likely Upper GI bleeding with hypotension -BP 95/62, HR 93 on presentation, still hypotensive and tachycardic to 111 at the time of my evaluation. -T&S, ordered for 3 units PRBC, currently receiving 1st unit -Continue Pantoprazole ggt. -GI unavailable overnight, Dr. Lee did last EGD, therefore spoke with Dr. Wright of General Surgery service for possible repeat EGD, possible C-scope given mild abdominal pain in LLQ. He requested Carafate QID and will see patient in the morning after PRBC transfusions. -Monitor Hgb after transfusion. -IVF hydration to support BP. -Hold home ASA. Leukocytosis likely due to acute anemia however will obtain CXR in setting of chronic cough, likely due to COPD. Monitor for fevers, no endorsement of dysuria COPD with pulmonary HTN: Albuterol PRN, currently asymptomatic. Possible underlying CAD, diastolic dysfunction grade 2: continue metoprolol 12.5 mg daily. DVT ppx: ICD SAMI Alvares MD Apr 24, 2019 21:19
[2019-04-24] MEDS: SUCRALFATE 1 GM TAB PO SCH (22:15)
[2019-04-24 23:00] VITALS: BP 110/62
[2019-04-24] MEDS: LATANOPROST 0.005% OPHTH SOLN 2.5 ML OU SCH (23:35)
[2019-04-25] VITALS (9 sets, daily range): BP systolic 82–113; BP diastolic 44–65
[2019-04-25] MEDS: NS 1,000 ML IV SCH ×2 (01:56→15:43)
[2019-04-25] MEDS: PANTOPRAZOLE SODIUM 40 MG in D5W 50 ML IV SCH ×4 (05:01→19:56)
--- NOTE | 2019-04-25 07:48 | REP ---
The portable chest, 09:35 p.m., single AP view with the patient upright: Comparisons are mostly of 06/09/2015 and recent study of 04/16/2019. The bilateral pleural effusions identified on 04/16/2019 have resolved. There is chronic interstitial coarsening compatible with chronic lung disease. Cardiac size is upper normal, unchanged. The indira, mediastinum, skeletal structures are unremarkable. Impression: The bilateral pleural effusions have resolved. Chronic interstitial coarsening. Electronically Signed by Les Weldon MD 04/25/2019 07:39 A
[2019-04-25 08:23] LABS: HEMATOCRIT 29.3 % (36.0-47.0); MEAN CORPUSCULAR HEMOGLOBIN 27.6 pg (27.0-33.0); MEAN CORPUSCULAR HGB CONC 31.4 g/dl (32.0-36.5); RED BLOOD COUNT 3.33 10^6/uL (4.00-5.40); WHITE BLOOD COUNT 11.1 10^3/uL (4.0-10.0)
[2019-04-25 08:38] LABS: HEMOGLOBIN 9.2 g/dl (12.0-15.5); PLATELET COUNT, AUTOMATED 337 10^3/uL (150-450)
[2019-04-25 08:52] LABS: ALBUMIN 2.8 GM/DL (3.2-5.2); BILIRUBIN,TOTAL 0.6 MG/DL (0.2-1.0); CALCIUM LEVEL 8.4 MG/DL (8.8-10.2); CREATININE FOR GFR 1.03 MG/DL (0.55-1.30); GLOMERULAR FILTRATION RATE 55.2 (>39); POTASSIUM SERUM 3.6 MEQ/L (3.5-5.1)
[2019-04-25] MEDS: SUCRALFATE 1 GM TAB PO SCH ×5 (10:01→20:50)
[2019-04-25] MEDS: METOPROLOL SUCC *XL* 12.5MG PER 1/2 TAB (TopROL *XL*) PO SCH (10:01)
--- NOTE | 2019-04-25 15:27 | CR ---
DATE OF CONSULTATION: 04/25/2019 REASON FOR CONSULTATION: Anemia, melanotic stools. HISTORY OF PRESENT ILLNESS: The patient is a 78-year-old female who was just admitted 12 days ago for acute GI bleeding with anemia and underwent upper and lower endoscopy by Dr. Lee who found evidence of superficial ulcers in the stomach as well as erosions in the duodenal bulb and the first portion of the duodenum consistent with gastritis and duodenitis. The patient has had some melanotic stools since discharge and has been on proton pump inhibitor. The patient was stable at the time of discharge. She was seen in her primary care provider's office and was found to be anemic and thus sent to the emergency room for additional treatment. She was discharged home still on aspirin a day and her meloxicam was stopped however. Although it is hard to know from the patient's description if she was still taking the meloxicam during this last week. In any case the patient returns with some melanotic stools and anemia. The patient was discharged home approximately 6 days ago. She does not complain of any significant shortness of breath. At this point however, has had some weakness and shortness of breath over the last 4 days prior to admission. She had one bowel movement this morning but no other evidence of diarrhea, etc.. Her past medical history is significant for history of hypertension, COPD, chronic anemia, history of osteoarthritis, glaucoma, total abdominal hysterectomy, appendectomy, right ankle fracture. MEDICATIONS: Prior to admission this time was: - Augmentin - aspirin - metoprolol - Protonix - Travatan Physical exam reveals a 78-year-old female who looks stated age. HEENT is unremarkable. Lungs are clear anteriorly. Heart is regular with multiple irregular beats. Abdomen is soft, nontender, nondistended. Overall the patient is hungry and would like to have something to eat. Her followup CBC this morning from last night reveals a hematocrit of 29. I do not see any other blood work since the admission blood work. IMPRESSION AND PLAN: The patient has evidence of probable ongoing upper GI bleed most likely from the superficial ulcerations in the stomach. My recommendation at this time is to just add Carafate, continue on Protonix on a twice a day basis. However, if the hematocrit drops or the patient continues with some melanotic stools, then I would recommend adding octreotide to this. I anticipate she will probably need to stay off the aspirin and continue on the Carafate as well as proton pump inhibitor as an outpatient and I would recommend that for 4-6 weeks and then at that point if you would like to restart the aspirin, it is reasonable just as long as her hematocrit is stable. However, she should have a followup appointment Dr. Lee in the next couple weeks after discharge and thus if her hematocrit is stable overnight, I would recommend starting her on a clear liquid diet and see how she does with the progress of that thereafter.
--- NOTE | 2019-04-25 16:59 | IPNPDOC ---
Date Seen The patient was seen on 04/25/19. Progress Note SUBJECTIVE: Patient reported feeling fine today without any complaints apart from weakness. Does note to still have dark stool however. NPO. OBJECTIVE PHYSICAL EXAMINATION: VITAL SIGNS: Please see below. General: No acute distress, Alert Eyes: Normal sclera, EOMI, GERARDO HENT: Atraumatic, neck supple, moist mucous membranes Cardiovascular: Normal rate, normal rhythm. No murmurs appreciated. Pulmonary: Clear to auscultation b/l, no wheezing GI: Soft, nontender, nondistended Skin: Warm and dry Neuro: CN grossly intact. No focal deficits. Strengths equal b/l. Psych: oriented x 3 LABORATORY DATA, IMAGING STUDIES, MICROBIOLOGY: Please see below. DVT prophylaxis ordered?: SCD ASSESSMENT AND PLAN: 1. Acute blood loss anemia/GI bleed - Recent scope by GI Dr. Lee 2 weeks ago s/p panendoscopy with evidence of stomach and duodenal ulcers. - Hypotensive and tachycardic on presentation this admission. - BP currently stable. - c/w PPI and sulcrafate. - Has been seen by Surgery. Plan to monitor overnight and if H/H stable, will start feeding trial. n - If H/H continues to drop, will add Octreotide. - Hold aspirin. 2. COPD - not in exacerbation. - Monitor and nebs as needed. Patient is high risk given anemia 2/2 GI bleed and may require repeat endoscopy on this admission. [facility] Vital Signs/I&O Vital Signs Date Time Temp Pulse Resp B/P (MAP) Pulse Ox O2 Delivery O2 Flow Rate FiO2 04/25/19 16:00 98.0 84 18 82/48 (59) 100 04/24/19 22:46 Room Air I&O- Last 24 Hours up to 6 AM 04/25/19 06:00 Intake Total 1500 ml Output Total 0 ml Balance 1500 ml Laboratory Data 24H LABS Laboratory Tests 2 04/25/19 07:46: Nucleated Red Blood Cells % (auto) 0.3H, Anion Gap 7L, Glomerular Filtration Ra te 55.2, Blood Urea Nitrogen 27H, Creatinine 1.03, Sodium Level 140, Potassium Level 3.6, Chloride Level 108H, Carbon Dioxide Level 25, Calcium Level 8.4L, Aspartate Amino Transf (AST/SGOT) 16, Alanine Aminotransferase (ALT/SGPT) 17, Alkaline Phosphatase 81, Total Bilirubin 0.6, Total Protein 6.0L, Albumin 2.8L, Albumin/Globulin Ratio 0.88L CBC/BMP Laboratory Tests 04/25/19 07:46 Red Blood Count 3.33 L, Mean Corpuscular Volume 88.0, Mean Corpuscular Hemoglobin 27.6, Mean Corpuscular Hemoglobin Concent 31.4 L, Red Cell Distribution Width 16.0 H, Calcium Level 8.4 L, Aspartate Amino Transf (AST/SGOT) 16, Alanine Aminotransferase (ALT/SGPT) 17, Alkaline Phosphatase 81, Total Bilirubin 0.6, Total Protein 6.0 L, Albumin 2.8 L KRISTI OCONNOR MD Apr 25, 2019 16:59
--- NOTE | 2019-04-25 20:42 | ECGEPIP ---
[facility] - ED Test Date: 2019-04-24 Pat Name: ANAHI RENDON Department: Room: [place] [address] Gender: Female Animal Care Provider: maryuri : [id number] Requested By: Maxi Velazquez Order Number: [id number] Reading MD: Erica Read Measurements Intervals [place] Rate: 94 P: 13 SD: 179 QRS: 26 QRSD: 125 T: 4 QT: 392 QTc: 491 Interpretive Statements SINUS RHYTHM WITH OCCASIONAL SUPRAVENTRICULAR PREMATURE COMPLEXES RIGHT BUNDLE BRANCH BLOCK SIMILAR 04/13/19 Electronically Signed on 04-25-2019 20:41:41 EDT by Erica Read
[2019-04-25] MEDS: LATANOPROST 0.005% OPHTH SOLN 2.5 ML OU SCH (20:50)
[2019-04-26] VITALS (7 sets, daily range): BP systolic 95–111; BP diastolic 46–68
[2019-04-26] MEDS: PANTOPRAZOLE SODIUM 40 MG in D5W 50 ML IV SCH ×5 (01:33→22:01)
[2019-04-26] MEDS: NS 1,000 ML IV SCH (04:13)
[2019-04-26 06:03] LABS: HEMATOCRIT 28.8 % (36.0-47.0); HEMOGLOBIN 8.8 g/dl (12.0-15.5); MEAN CORPUSCULAR HEMOGLOBIN 26.9 pg (27.0-33.0); MEAN CORPUSCULAR HGB CONC 30.6 g/dl (32.0-36.5); MEAN CORPUSCULAR VOLUME 88.1 fl (80.0-96.0); PLATELET COUNT, AUTOMATED 375 10^3/uL (150-450); RED BLOOD COUNT 3.27 10^6/uL (4.00-5.40); WHITE BLOOD COUNT 10.5 10^3/uL (4.0-10.0)
[2019-04-26 06:31] LABS: BLOOD UREA NITROGEN 18 MG/DL (7-18); CALCIUM LEVEL 8.3 MG/DL (8.8-10.2); CARBON DIOXIDE LEVEL 21 MEQ/L (21-32); CHLORIDE LEVEL 109 MEQ/L (98-107); CREATININE FOR GFR 0.91 MG/DL (0.55-1.30); GLOMERULAR FILTRATION RATE > 60.0 (>39); GLUCOSE, FASTING 76 MG/DL (70-100); POTASSIUM SERUM 3.5 MEQ/L (3.5-5.1); SODIUM LEVEL 139 MEQ/L (136-145)
[2019-04-26] MEDS: SUCRALFATE 1 GM TAB PO SCH ×4 (09:29→20:42)
[2019-04-26] MEDS: METOPROLOL SUCC *XL* 12.5MG PER 1/2 TAB (TopROL *XL*) PO SCH (09:32)
--- NOTE | 2019-04-26 16:20 | IPNPDOC ---
Date Seen The patient was seen on 04/26/19. Progress Note SUBJECTIVE: Patient still reported feeling well without any complaints. Does not note any bleeding overnight but has not had a bowel movement, unsure if stool would still be dark. Started on liquid diet today and has been tolerating well. Hb 8.8 this morning from 9.2 yesterday. OBJECTIVE PHYSICAL EXAMINATION: VITAL SIGNS: Please see below. General: No acute distress, Alert Eyes: Normal sclera, EOMI, GERARDO HENT: Atraumatic, neck supple, moist mucous membranes Cardiovascular: Normal rate, normal rhythm. No murmurs appreciated. Pulmonary: Clear to auscultation b/l, no wheezing GI: Soft, nontender, nondistended Skin: Warm and dry Neuro: CN grossly intact. No focal deficits. Strengths equal b/l. Psych: oriented x 3 LABORATORY DATA, IMAGING STUDIES, MICROBIOLOGY: Please see below. DVT prophylaxis ordered?: SCD ASSESSMENT AND PLAN: 1. Acute blood loss anemia/GI bleed - Recent scope by GI Dr. Lee 2 weeks ago s/p panendoscopy with evidence of stomach and duodenal ulcers. - Hypotensive and tachycardic on presentation this admission. - BP currently stable. - c/w PPI and sulcrafate. - Has been seen by Surgery, working on advancing diet at this time. - c/w monitor H/H, add octreotide if Hb continue to drop. - Hold aspirin. 2. COPD - not in exacerbation. - Monitor and nebs as needed. Patient is high risk given anemia 2/2 GI bleed and may require repeat endoscopy on this admission. VS, I&O, 24H, [facility] Vital Signs/I&O Vital Signs Date Time Temp Pulse Resp B/P (MAP) Pulse Ox O2 Delivery O2 Flow Rate FiO2 04/26/19 12:00 98.0 88 18 111/59 (76) 96 04/24/19 22:46 Room Air I&O- Last 24 Hours up to 6 AM 04/26/19 05:59 Intake Total 1190 ml Output Total 0 ml Balance 1190 ml Laboratory Data 24H LABS Laboratory Tests 2 04/26/19 05:22: Nucleated Red Blood Cells % (auto) 0.0, Anion Gap 9, Glomerular Filtration Rate > 60.0, Blood Urea Nitrogen 18, Creatinine 0.91, Sodium Level 139, Potassium Level 3.5, Chloride Level 109H, Carbon Dioxide Level 21, Calcium Level 8.3L CBC/BMP Laboratory Tests 04/26/19 05:22 Red Blood Count 3.27 L, Mean Corpuscular Volume 88.1, Mean Corpuscular Hemoglobin 26.9 L, Mean Corpuscular Hemoglobin Concent 30.6 L, Red Cell Distribution Width 16.0 H, Calcium Level 8.3 L KRISTI OCONNOR MD Apr 26, 2019 16:20
[2019-04-26] MEDS: LATANOPROST 0.005% OPHTH SOLN 2.5 ML OU SCH (20:41)
[2019-04-27 04:00] VITALS: BP 116/55
[2019-04-27] MEDS: PANTOPRAZOLE SODIUM 40 MG in D5W 50 ML IV SCH ×4 (04:06→19:55)
[2019-04-27 05:23] LABS: HEMATOCRIT 28.1 % (36.0-47.0); HEMOGLOBIN 8.6 g/dl (12.0-15.5); MEAN CORPUSCULAR HEMOGLOBIN 27.5 pg (27.0-33.0); MEAN CORPUSCULAR HGB CONC 30.6 g/dl (32.0-36.5); MEAN CORPUSCULAR VOLUME 89.8 fl (80.0-96.0); PLATELET COUNT, AUTOMATED 331 10^3/uL (150-450); RED BLOOD COUNT 3.13 10^6/uL (4.00-5.40); WHITE BLOOD COUNT 10.2 10^3/uL (4.0-10.0)
[2019-04-27 05:35] LABS: CALCIUM LEVEL 8.3 MG/DL (8.8-10.2); CREATININE FOR GFR 0.97 MG/DL (0.55-1.30); GLOMERULAR FILTRATION RATE 59.1 (>39); POTASSIUM SERUM 3.9 MEQ/L (3.5-5.1)
[2019-04-27 07:38] VITALS: BP 119/59
[2019-04-27] MEDS: SUCRALFATE 1 GM TAB PO SCH ×4 (08:08→19:56)
[2019-04-27] MEDS: METOPROLOL SUCC *XL* 12.5MG PER 1/2 TAB (TopROL *XL*) PO SCH (08:09)
[2019-04-27 11:35] VITALS: BP 126/56
--- NOTE | 2019-04-27 14:02 | IPNPDOC ---
Date Seen The patient was seen on 04/27/19. Progress Note SUBJECTIVE: Patient still reported feeling well without any complaints. Has been tolerating diet well. Hb relatively stable with slight downtrended. 8.6 today. Reported several bowel movements yesterday still with melanotic stool. Denies any abdominal pain or discomfort. Has not had a bowel movement today. OBJECTIVE PHYSICAL EXAMINATION: VITAL SIGNS: Please see below. General: No acute distress, Alert Eyes: Normal sclera, EOMI, GERARDO HENT: Atraumatic, neck supple, moist mucous membranes Cardiovascular: Normal rate, normal rhythm. No murmurs appreciated. Pulmonary: Clear to auscultation b/l, no wheezing GI: Soft, nontender, nondistended Skin: Warm and dry Neuro: CN grossly intact. No focal deficits. Strengths equal b/l. Psych: oriented x 3 LABORATORY DATA, IMAGING STUDIES, MICROBIOLOGY: Please see below. DVT prophylaxis ordered?: SCD ASSESSMENT AND PLAN: 1. Acute blood loss anemia/GI bleed - Recent scope by GI Dr. Lee 2 weeks ago s/p panendoscopy with evidence of stomach and duodenal ulcers. - Hypotensive and tachycardic on presentation this admission. - BP currently stable. - c/w PPI and sulcrafate. - Has been seen by Surgery. - c/w monitor H/H, add octreotide if Hb continue to drop. - Hold aspirin. - Spoke to covering surgeon this weekend, can continue to monitor. Hopefully the stool will clear up, if so can be discharged for scope as outpatient. - If hb continues to drop, will make NPO for possible scope. 2. COPD - not in exacerbation. - Monitor and nebs as needed. Patient is high risk given anemia 2/2 GI bleed and may require repeat endoscopy on this admission. VS, I&O, 24H, [facility] Vital Signs/I&O Vital Signs Date Time Temp Pulse Resp B/P (MAP) Pulse Ox O2 Delivery O2 Flow Rate FiO2 04/27/19 11:35 98.2 101 18 126/56 (79) 93 04/24/19 22:46 Room Air I&O- Last 24 Hours up to 6 AM 04/27/19 06:00 Intake Total 1310 ml Output Total 750 ml Balance 560 ml Laboratory Data 24H LABS Laboratory Tests 2 04/27/19 04:57: Nucleated Red Blood Cells % (auto) 0.0, Anion Gap 5L, Glomerular Filtration Rate 59.1, Blood Urea Nitrogen 17, Creatinine 0.97, Sodium Level 139, Potassium Level 3.9, Chloride Level 109H, Carbon Dioxide Level 25, Calcium Level 8.3L CBC/BMP Laboratory Tests 04/27/19 04:57 Red Blood Count 3.13 L, Mean Corpuscular Volume 89.8, Mean Corpuscular Hemoglobin 27.5, Mean Corpuscular Hemoglobin Concent 30.6 L, Red Cell Distribution Width 16.0 H, Calcium Level 8.3 L KRISTI OCONNOR MD Apr 27, 2019 14:02
[2019-04-27] MEDS: NICOTINE 14 MG/24 HR TRANSDERMAL TD SCH (14:22)
[2019-04-27 16:00] VITALS: BP 104/55
[2019-04-27] MEDS: LATANOPROST 0.005% OPHTH SOLN 2.5 ML OU SCH (19:56)
[2019-04-27 20:00] VITALS: BP 126/60
[2019-04-28 00:05] VITALS: BP 118/61
[2019-04-28] MEDS: PANTOPRAZOLE SODIUM 40 MG in D5W 50 ML IV SCH ×2 (00:47→05:55)
[2019-04-28 04:00] VITALS: BP 109/64
[2019-04-28 06:06] LABS: HEMATOCRIT 26.1 % (36.0-47.0); HEMOGLOBIN 8.1 g/dl (12.0-15.5); MEAN CORPUSCULAR HEMOGLOBIN 27.8 pg (27.0-33.0); MEAN CORPUSCULAR VOLUME 89.7 fl (80.0-96.0); PLATELET COUNT, AUTOMATED 342 10^3/uL (150-450); RED BLOOD COUNT 2.91 10^6/uL (4.00-5.40); WHITE BLOOD COUNT 7.5 10^3/uL (4.0-10.0)
[2019-04-28 06:24] LABS: CALCIUM LEVEL 8.1 MG/DL (8.8-10.2); CREATININE FOR GFR 0.96 MG/DL (0.55-1.30); GLOMERULAR FILTRATION RATE 59.8 (>39); POTASSIUM SERUM 3.7 MEQ/L (3.5-5.1)
[2019-04-28 08:00] VITALS: BP 114/58
[2019-04-28] MEDS: SUCRALFATE 1 GM TAB PO SCH (08:32)
[2019-04-28 08:33] VITALS: BP 114/58
[2019-04-28] MEDS: METOPROLOL SUCC *XL* 12.5MG PER 1/2 TAB (TopROL *XL*) PO SCH (08:33)
[2019-04-28] MEDS: NICOTINE 14 MG/24 HR TRANSDERMAL TD SCH (08:33)
[2019-04-28] MEDS ORDERED: SUCR1TA PO (10:55)
--- NOTE | 2019-04-28 10:58 | DS.PDOC ---
Discharge Summary General Date of Admission Apr 24, 2019 at 20:50 Date of Discharge 04/28/19 Discharge Summary PROCEDURES PERFORMED DURING STAY: [None]. ADMITTING DIAGNOSES: 1. GI Bleed 2. COPD DISCHARGE DIAGNOSES: 1. GI Bleed 2. COPD COMPLICATIONS/CHIEF COMPLAINT: Sypmtomatic Anemia;Upper Gi Bleed. HISTORY OF PRESENT ILLNESS: "78 F with HTN, COPD, Chronic anemia, OA, recent admission for acute blood loss anemia presumed from GI tract with NSTEMI type 2 presents with complaints of progressively worsening SOB and weakness over the past 4 days. Patient went to her PMD today for checkup and blood work was done showing anemia to 6.1 and she was sent back to the ED. She notes having brown stools at time of discharge but started to have black stools on 04/20, including 2 episodes of dark loose bowel movements this morning. She denies any NSAID use, falls, trauma, BRBPR, bruising, abd pain, n/v/d. Last admission: Discharged 04/12 after upper endoscopy by Dr. Lee showing gastritis and duodenitis. Trop elevation likely type 2 DC seen by cards last admission, TTE: EF 60-65%, moderate Pulm HTN, grade 2 diastolic dysfunction and moderate aortic stenosis." HOSPITAL COURSE: Patient was transfused 3 units pRBC during admission. Continues to have dark stool but has not had any yesterday. Hb remained >8 without significant drop from day to day. She has been completely asymptomatic without any complaints including abdominal pain/nausea and vomiting and tolerate a regular diet well. Has been maintained on Protonix and ASA had been held. Was evaluated by surgery, recommended holding Aspirin and continue both PPI + sulcrafate and to follow up with Dr. Lee/C[facility] as outpatient for possible endoscopy/colonoscopy if needed. DISCHARGE MEDICATIONS: Please see below. ALLERGIES: Please see below. PHYSICAL EXAMINATION ON DISCHARGE: VITAL SIGNS: Please see below. General: No acute distress, Alert Eyes: Normal sclera, EOMI, GERARDO HENT: Atraumatic, neck supple, moist mucous membranes Cardiovascular: Normal rate, normal rhythm. No murmurs appreciated. Pulmonary: Clear to auscultation b/l, no wheezing GI: Soft, nontender, nondistended Skin: Warm and dry Neuro: CN grossly intact. No focal deficits. Strengths equal b/l. Psych: oriented x 3 LABORATORY DATA: Please see below. ACTIVITY: [As tolerated]. DIET: Regular DISCHARGE PLAN: Hold ASA for now. c/w Protonix and Sulcrafate f/u with PMD and Dr. Lee within 1 week Come back to ER if develops gross bleeding/symptomatic again DISPOSITION: Home. DISCHARGE INSTRUCTIONS: Hold ASA for now. c/w Protonix and Sulcrafate f/u with PMD and Dr. Lee within 1 week Come back to ER if develops gross bleeding/symptomatic again ITEMS TO FOLLOWUP ON ON OUTPATIENT: None DISCHARGE CONDITION: [Stable]. TIME SPENT ON DISCHARGE: 32 minutes. Vital Signs/I&Os Vital Signs Date Time Temp Pulse Resp B/P (MAP) Pulse Ox O2 Delivery O2 Flow Rate FiO2 04/28/19 08:33 87 114/58 04/28/19 08:00 98.3 17 95 04/24/19 22:46 Room Air I&O- Last 24 Hours up to 6 AM 04/28/19 05:59 Intake Total 1385 ml Output Total 1375 ml Balance 10 ml Laboratory Data Labs 24H Laboratory Tests 2 04/28/19 05:40: Nucleated Red Blood Cells % (auto) 0.0, Anion Gap 6L, Glomerular Filtration Rate 59.8, Blood Urea Nitrogen 13, Creatinine 0.96, Sodium Level 141, Potassium Level 3.7, Chloride Level 111H, Carbon Dioxide Level 24, Calcium Level 8.1L CBC/BMP Laboratory Tests 04/28/19 05:40 Red Blood Count 2.91 L, Mean Corpuscular Volume 89.7, Mean Corpuscular Hem oglobin 27.8, Mean Corpuscular Hemoglobin Concent 31.0 L, Red Cell Distribution Width 15.9 H, Calcium Level 8.1 L Discharge Medications Scheduled Metoprolol Succinate (Metoprolol Succinate) 25 Mg Tab.er.24h, 12.5 MG PO DAILY, (Reported) Pantoprazole Sodium (Pantoprazole Sodium) 40 Mg Tablet.dr, 40 MG PO BID, (Re ported) Travoprost (Travatan Z) 0.004% 2.5ML Drops, 1 DROP OU QHS, (Reported) Scheduled PRN Benzonatate (Benzonatate) 200 Mg Capsule, 200 MG PO TID PRN for COUGH, (Reported) Allergies Coded Allergies: No Known Allergies (Unverified , 04/12/19) KRISTI OCONNOR MD Apr 28, 2019 10:58
== END 2019-04-28 12:32 | disposition home or self-care (01) | DRG 377 ==
LOC: M ED 17:11 → M ED INP 20:50 → M PCU 22:59
PROVIDERS: ADMIT Internal Medicine; ATTEND Student in an Organized Health Care Education/Training Program
PROC: 30233N1 Transfusion of Nonautologous Red Blood Cells into Peripheral Vein, Percutaneous Approach (ICD-10-PCS; principal; 2019-04-24)
DX: K92.2 Gastrointestinal hemorrhage, unspecified (principal); I21.4 Non-ST elevation (NSTEMI) myocardial infarction; D62 Acute posthemorrhagic anemia; J44.9 Chronic obstructive pulmonary disease, unspecified; I10 Essential (primary) hypertension; I27.20 Pulmonary hypertension, unspecified; I35.0 Nonrheumatic aortic (valve) stenosis; Z66 Do not resuscitate; Z79.82 Long term (current) use of aspirin; M19.90 Unspecified osteoarthritis, unspecified site

== ENCOUNTER → 2019-04-24 | Outpatient (CLI) | payer MEDICARE ==
[~2019-04-24] MED LIST: AMOX875T2 PO; ASPI81TA85 PO; BENZ-18 PO; BENZ200C70 PO; COLA100C5 PO; FERR325T81 PO; FURO20TA2; LISI10TA15 PO; MELO7.5T35 PO; METO1TAB32 PO; NAPR-837 PO; PANT-23 PO; PANT40TA3 PO; PEG1POW PO; PREDOPD; SUCR1TA PO; TRAV04OPD OU
[2019-04-24 16:38] LABS: HEMATOCRIT 20.6 % (36.0-47.0); MEAN CORPUSCULAR HGB CONC 29.6 g/dl (32.0-36.5); MEAN CORPUSCULAR VOLUME 91.2 fl (80.0-96.0); PLATELET COUNT, AUTOMATED 464 10^3/uL (150-450); RED BLOOD COUNT 2.26 10^6/uL (4.00-5.40); WHITE BLOOD COUNT 14.6 10^3/uL (4.0-10.0)
[2019-04-24 16:43] LABS: HEMOGLOBIN 6.1 g/dl (12.0-15.5)
[2019-04-24 16:59] LABS: CALCIUM LEVEL 9.1 MG/DL (8.8-10.2); CREATININE FOR GFR 1.17 MG/DL (0.55-1.30); GLOMERULAR FILTRATION RATE 47.6 (>39); POTASSIUM SERUM 4.1 MEQ/L (3.5-5.1)
== END ==
LOC: M WUC 15:09
PROVIDERS: ATTEND Internal Medicine
DX: K29.01 Acute gastritis with bleeding (principal)

== ENCOUNTER 2019-08-04 22:07 | Emergency (ER) | payer MEDICARE ==
[~2019-08-04] VITALS: Ht 157.5 cm; Wt 79.1 kg
[~2019-08-04 22:07] MED LIST changes: +BENZ200C70 PO; +PANT-23 PO; +SUCR1TA PO
[2019-08-04] MEDS ORDERED: FURO20TA2 (22:15)
[2019-08-04] MEDS ORDERED: FERR325T81 PO (22:15)
[2019-08-04] MEDS ORDERED: NAPR-837 PO (23:23)
[2019-08-04] MEDS ORDERED: NAPROXEN 250 MG TAB PO ONE (23:30)
[2019-08-04 23:34] VITALS: BP 131/82
--- NOTE | 2019-08-05 08:19 | REP ---
RIGHT RIB SERIES: Five views including PA chest. HISTORY: Pain. COMPARISON PORTABLE CHEST X-RAY: April 24, 2019. FINDINGS: PA chest radiograph shows no evidence of pneumothorax or infiltrate. Mediastinum is not widened. Aorta is calcific and somewhat tortuous. The heart is not enlarged. There is slight blunting of the right lateral pleural angle. Multiple views of the right ribcage show no evidence of rib fracture or bony destructive lesion. There is respiratory motion artifact on one of the views. Degenerative changes are seen in the thoracic spine. There is diffuse osteopenia. IMPRESSION: Slight blunting of the right lateral pleural angle. Otherwise negative right rib radiographs. Electronically Signed by Terence Hull MD 08/05/2019 11:44 A
== END 2019-08-04 23:50 | disposition home or self-care (01) ==
LOC: M ED 22:07
DX: R07.89 Other chest pain (principal); I51.9 Heart disease, unspecified; I10 Essential (primary) hypertension; J44.9 Chronic obstructive pulmonary disease, unspecified; F17.200 Nicotine dependence, unspecified, uncomplicated; Z79.899 Other long term (current) drug therapy

== ENCOUNTER 2020-02-21 21:30 | Emergency (ER) | payer MEDICARE ==
[~2020-02-21] VITALS: Ht 157.5 cm; Wt 77.7 kg
[~2020-02-21 21:30] MED LIST changes: +FERR325T81 PO; +FURO20TA2; +NAPR-837 PO
--- NOTE | 2020-02-21 22:53 | REPVR ---
PROCEDURE INFORMATION: Exam: XR Right Ribs with PA Chest, 3 Views Exam date and time: 02/21/2020 10:30 PM Age: 79 years old Clinical indication: Other: Fall; Additional info: Rib pain after fall TECHNIQUE: Imaging protocol: XR Right ribs 3 views with PA chest. COMPARISON: CR Ribs uni W-PA CHEST ONLY 08/04/2019 11:09 PM FINDINGS: Lungs: Coarse interstitial markings of the lungs. Mild pulmonary hyperinflation. Minimal bilateral infrahilar atelectasis or scar. Pleural space: Unremarkable. No pleural effusion. No pneumothorax. Heart/Mediastinum: Top-normal size of the heart. Bones/joints: Diffuse osteopenia. Chronic right shoulder rotator cuff tear with degenerative remodeling at the pseudoarthrosis between the acromion and humeral head. Degenerative narrowing at the glenohumeral joint space. IMPRESSION: 1. Diffuse osteopenia. 2. Chronic right shoulder rotator cuff tear with degenerative changes at the pseudoarthrosis and glenohumeral joint. 3. Suggestion of some degree of COPD with minimal bibasilar atelectasis or scar. 4. Otherwise negative right ribs. No definite fracture is seen. Electronically signed by: Bert Godwin On 02/21/2020 22:52:59 PM
[2020-02-21] MEDS ORDERED: NORCO, ANEXSIA 5/325MG TABLET (HYDROcodone/ACETAMINOPHEN) PO ONE (23:15)
--- NOTE | 2020-02-21 23:37 | REPVR ---
PROCEDURE INFORMATION: Exam: CT Chest Without Contrast Exam date and time: 02/21/2020 11:04 PM Age: 79 years old Clinical indication: Injury or trauma; Fall; Initial encounter; Blunt trauma (contusions or hematomas); Additional info: Fall with severe rib pain R/O FX TECHNIQUE: Imaging protocol: Computed tomography of the chest without contrast. 3D rendering: MIP and/or 3D reconstructed images were created by the technologist. Radiation optimization: All CT scans at this facility use at least one of these dose optimization techniques: automated exposure control; mA and/or kV adjustment per patient size (includes targeted exams where dose is matched to clinical indication); or iterative reconstruction. COMPARISON: CT ANGIO CHEST 04/12/2019 5:16 AM FINDINGS: Lungs: Minimal diffuse bullous change. Minimal scattered fibro-atelectatic change, greatest in the posterior right apex and left lower lobe and lingular tip. Pleural space: Unremarkable. No pneumothorax. No pleural effusion. Heart: Unremarkable. No cardiomegaly. No pericardial effusion. Mediastinal space: Minimal hiatal hernia. Pulmonary arteries: The main pulmonary artery measures 29 mm. Aorta: The ascending thoracic aorta measures 35 mm. Lymph nodes: Unremarkable. No enlarged lymph nodes. Bones/joints: Degenerative changes of the shoulders. Superior endplate depression of T12 which is similar to the prior study. Slightly displaced fracture of the right 7th rib laterally. Soft tissues: Unremarkable. IMPRESSION: 1. Minimal diffuse bullous change with minimal scattered fibro-atelectatic change. 2. Minimal hiatal hernia. 3. Slightly displaced fracture of the right 7th rib laterally. Electronically signed by: Bert Godwin On 02/21/2020 23:36:53 PM
--- NOTE | 2020-02-22 00:10 | REPVR ---
PROCEDURE INFORMATION: Exam: US Abdomen, Limited; Right Upper Quadrant Exam date and time: 02/21/2020 11:59 PM Age: 79 years old Clinical indication: Abdominal pain; Acute; Additional info: Fall with ruq pain R/O liver injury TECHNIQUE: Imaging protocol: US abdomen. Real time ultrasound with image documentation. Limited exam focused on the right upper quadrant. COMPARISON: No relevant prior studies available. FINDINGS: Liver: The liver is attenuating and slightly increased in echogenicity with no gross focal defects. The liver appears enlarged. The main portal vein measures 15 mm and demonstrates hepatopetal portal flow. Gallbladder: The gallbladder is grossly normal with no definite stones and no visual wall thickening. Common bile duct: The common bile duct measures 5 mm. Pancreas: The pancreas is not seen due to gas shadowing. Right kidney: The right kidney is normal measuring 9.4 cm with no hydronephrosis. There is a simple peripelvic cyst measuring 2.1 x 2.1 x 2.0 cm. IMPRESSION: 1. Hepatomegaly with fatty infiltration. 2. Otherwise grossly negative right upper quadrant sonogram. Electronically signed by: Bert Godwin On 02/22/2020 00:10:17 AM
[2020-02-22] MEDS ORDERED: NORC1TAB7 PO (00:49)
[2020-02-22 01:09] VITALS: BP 155/75
== END 2020-02-22 01:23 | disposition home or self-care (01) ==
LOC: M ED 21:30
DX: S22.31XA Fracture of one rib, right side, initial encounter for closed fracture (principal); W01.0XXA Fall on same level from slipping, tripping and stumbling without subsequent striking against object, initial encounter; Y92.099 Unspecified place in other non-institutional residence as the place of occurrence of the external cause; Y93.9 Activity, unspecified; Y99.9 Unspecified external cause status; I10 Essential (primary) hypertension; J44.9 Chronic obstructive pulmonary disease, unspecified; Z72.0 Tobacco use; K76.0 Fatty (change of) liver, not elsewhere classified; M85.88 Other specified disorders of bone density and structure, other site; M75.101 Unspecified rotator cuff tear or rupture of right shoulder, not specified as traumatic; M19.011 Primary osteoarthritis, right shoulder; Z79.899 Other long term (current) drug therapy

== ENCOUNTER → 2020-07-20 | Outpatient (REF) | payer MEDICARE ==
[~2020-07-20] MED LIST changes: -ASPI81TA85 PO; +ASPI81TA86 PO; +NORC1TAB7 PO; +PANT40TA29 PO; -PANT40TA3 PO
== END ==
LOC: M LAB REF 16:40
PROVIDERS: ATTEND Surgery
DX: L57.8 Other skin changes due to chronic exposure to nonionizing radiation (principal); L85.8 Other specified epidermal thickening

== ENCOUNTER 2021-07-27 15:25 | Emergency (ER) | payer MEDICARE ==
[~2021-07-27 15:25] MED LIST changes: -LISI10TA15 PO; +LISI10TA24 PO; -PEG1POW PO; +POLY17PO18 PO
[2021-07-27 16:12] LABS: BASO # 0.1 10^3/uL (0.0-0.2); BASO % 0.7 % (0.0-1.0); EOS # 0.1 10^3/uL (0.0-0.5); EOS % 0.8 % (0.0-3.0); HEMATOCRIT 49.3 % (36.0-47.0); HEMOGLOBIN 16.3 g/dl (12.0-15.5); LYMPH # 2.4 10^3/uL (1.5-5.0); LYMPH % 20.4 % (24.0-44.0); MEAN CORPUSCULAR HEMOGLOBIN 29.1 pg (27.0-33.0); MEAN CORPUSCULAR HGB CONC 33.1 g/dl (32.0-36.5); MEAN CORPUSCULAR VOLUME 87.9 fl (80.0-96.0); MONO % 8.5 % (2.0-8.0); NEUTROPHILS # 8.1 10^3/uL (1.5-8.5); NEUTROPHILS % 67.6 % (36.0-66.0); PLATELET COUNT, AUTOMATED 264 10^3/uL (150-450); RED BLOOD COUNT 5.61 10^6/uL (4.00-5.40)
[2021-07-27] MEDS ORDERED: ASPIRIN 81 MG CHEW TABLET PO ONE (16:20)
[2021-07-27] MEDS ORDERED: POTA-136 PO (16:26)
[2021-07-27] MEDS ORDERED: BREO1INH PO (16:26)
[2021-07-27] MEDS ORDERED: CARV3.12 PO (16:26)
[2021-07-27] MEDS ORDERED: IBUP-1114 PO (16:26)
[2021-07-27] MEDS ORDERED: PANT40TA29 PO (16:26)
[2021-07-27] MEDS ORDERED: NS 500 ML IV ONE (16:30)
[2021-07-27 16:43] LABS: ALBUMIN 3.6 GM/DL (3.2-5.2); ALT/SGPT 26 U/L (12-78); BILIRUBIN,DIRECT < 0.1 MG/DL (0.0-0.2); BILIRUBIN,TOTAL 0.5 MG/DL (0.2-1.0); BLOOD UREA NITROGEN 22 MG/DL (7-18); CALCIUM LEVEL 9.5 MG/DL (8.8-10.2); CARBON DIOXIDE LEVEL 27 MEQ/L (21-32); CHLORIDE LEVEL 107 MEQ/L (98-107); GLOMERULAR FILTRATION RATE 35.5 (>32); GLUCOSE, FASTING 84 MG/DL (70-100); POTASSIUM SERUM 4.6 MEQ/L (3.5-5.1); SODIUM LEVEL 142 MEQ/L (136-145); TOTAL PROTEIN 7.3 GM/DL (6.4-8.2)
[2021-07-27 16:56] LABS: INR 0.99; PARTIAL THROMBOPLASTIN TIME 37.4 SECONDS (25.9-37.0); PROTHROMBIN TIME 13.5 SECONDS (12.7-14.5)
[2021-07-27 17:06] LABS: NT-PRO BNP 10504 PG/ML (<450)
[2021-07-27 17:52] LABS: RSV AMPLIFICATION NEGATIVE (NEGATIVE)
[2021-07-27] MEDS ORDERED: ISOVUE-370 76% 100ML VIAL As Ordered ONE (18:04)
[2021-07-27] MEDS ORDERED: CLOPIDOGREL 300 MG TAB (PLAVIX) PO STA (21:08)
[2021-07-27] MEDS ORDERED: HEPARIN DRIP 25,000 UNITS in IV 1 EA IV SCH (21:25)
[2021-07-27] MEDS ORDERED: HEPARIN SOD (PORCINE) 5000UNITS/ML 1ML VIAL/SYRINGE IV ONE (21:25)
[2021-07-27 23:16] VITALS: BP 125/56
== END 2021-07-27 23:35 | disposition short-term general hospital (02) ==
LOC: EDBD 15:25 → M ED 15:25
DX: I21.4 Non-ST elevation (NSTEMI) myocardial infarction (principal); I45.10 Unspecified right bundle-branch block; R00.0 Tachycardia, unspecified; R91.8 Other nonspecific abnormal finding of lung field; I25.2 Old myocardial infarction; I10 Essential (primary) hypertension; J44.9 Chronic obstructive pulmonary disease, unspecified; Z87.891 Personal history of nicotine dependence; Z79.899 Other long term (current) drug therapy
CPT/HCPCS: 36415; 71045; 71275; 80048; 80076; 83880; 84484; 85025; 85610; 85730; 87631; 93005; 93041; 94760; 96360; 99285; J1644; Q9967

== ENCOUNTER 2022-01-06 19:08 | Inpatient (IN) | payer MEDICARE ==
[~2022-01-06] VITALS: Ht 157.5 cm; Wt 80.5 kg
[2022-01-06] MEDS: PANTOPRAZOLE 40MG VIAL IV SCH (02:00)
[~2022-01-06 19:08] MED LIST changes: +BREO1INH PO; +CARV3.12 PO; +IBUP-1114 PO; +POTA-136 PO
[2022-01-06] MEDS ORDERED: ELIQ5TAB (19:18)
[2022-01-06 20:55] LABS: BASO % 0.4 % (0.0-1.0); EOS # 0.2 10^3/uL (0.0-0.5); LYMPH # 1.8 10^3/uL (1.5-5.0); MEAN CORPUSCULAR HEMOGLOBIN 22.3 pg (27.0-33.0); MEAN CORPUSCULAR HGB CONC 27.4 g/dl (32.0-36.5); MEAN CORPUSCULAR VOLUME 81.2 fl (80.0-96.0); MONO # 1.1 10^3/uL (0.0-0.8); NEUTROPHILS # 7.5 10^3/uL (1.5-8.5); PLATELET COUNT, AUTOMATED 373 10^3/uL (150-450); RED BLOOD COUNT 2.02 10^6/uL (4.00-5.40); WHITE BLOOD COUNT 11.1 10^3/uL (4.0-10.0)
[2022-01-06 21:12] LABS: CK-MB VALUE MASS 1.3 NG/ML (<3.6); MB/CK RELATIVE INDEX 3.51 (< OR =4)
[2022-01-06 21:13] LABS: ALBUMIN 3.1 GM/DL (3.2-5.2); BILIRUBIN,DIRECT 0.1 MG/DL (0.0-0.2); BILIRUBIN,TOTAL 0.3 MG/DL (0.2-1.0); CALCIUM LEVEL 8.4 MG/DL (8.8-10.2); CREATININE FOR GFR 1.09 MG/DL (0.55-1.30); GLOMERULAR FILTRATION RATE 51.3 (>32); POTASSIUM SERUM 4.5 MEQ/L (3.5-5.1)
[2022-01-06 21:16] LABS: HEMATOCRIT 16.4 % (36.0-47.0); HEMOGLOBIN 4.5 g/dl (12.0-15.5)
[2022-01-06 21:19] LABS: RSV AMPLIFICATION NEGATIVE (NEGATIVE)
[2022-01-06 21:32] LABS: INR 1.73; PROTHROMBIN TIME 20.7 SECONDS (12.7-14.5)
[2022-01-06] MEDS ORDERED: cefTRIAXone SOD 1 GM in D5W MINI-BAG PLUS 50 ML IV ONE (22:00)
[2022-01-06 22:41] LABS: CK-MB VALUE MASS 1.2 NG/ML (<3.6)
[2022-01-06] MEDS ORDERED: AZITHROMYCIN INJ 500 MG, VIAL MATE ADAPTER 1 EACH in NS 250 ML IV SCH (23:00)
[2022-01-06] MEDS ORDERED: NS 1,000 ML IV SCH (23:40)
[2022-01-06 23:51] VITALS: BP 127/60
[2022-01-07] VITALS (8 sets, daily range): BP systolic 113–131; BP diastolic 56–88
[2022-01-07] MEDS ORDERED: FERR1TAB8 PO (01:39)
[2022-01-07] MEDS ORDERED: PLAV1TAB2 PO (01:39)
[2022-01-07] MEDS ORDERED: NITR4TASL SL (01:39)
[2022-01-07] MEDS ORDERED: ATOR40TA75 PO (01:39)
[2022-01-07] MEDS ORDERED: PANT40TA29 PO (01:39)
[2022-01-07] MEDS ORDERED: TRAV04OPD OU (01:39)
[2022-01-07] MEDS ORDERED: ELIQ5TAB PO (01:40)
[2022-01-07] MEDS ORDERED: FUROSEMIDE 40MG/4ML VIAL (J1940) IV ONE (01:55)
[2022-01-07] MEDS ORDERED: ALBUTEROL SULFATE 2.5 MG/0.5 ML INH NEB SOLN NEB PRN (01:55)
[2022-01-07] MEDS: IPRATROPIUM 0.5MG/ALBUTEROL 2.5MG INH SOL UD 3ML (DUONEB) NEB SCH ×2 (02:00→08:00)
[2022-01-07] MEDS ORDERED: METO25TA4 PO (02:44)
[2022-01-07] MEDS ORDERED: POTA10TA17 PO (02:44)
[2022-01-07] MEDS ORDERED: HOME MED LIST COMPLETE! XX SCH (02:45)
[2022-01-07 08:20] LABS: HEMATOCRIT 26.5 % (36.0-47.0); MEAN CORPUSCULAR HEMOGLOBIN 25.6 pg (27.0-33.0); MEAN CORPUSCULAR HGB CONC 30.6 g/dl (32.0-36.5); MEAN CORPUSCULAR VOLUME 83.9 fl (80.0-96.0); PLATELET COUNT, AUTOMATED 287 10^3/uL (150-450); RED BLOOD COUNT 3.16 10^6/uL (4.00-5.40); WHITE BLOOD COUNT 10.6 10^3/uL (4.0-10.0)
[2022-01-07 08:36] LABS: CALCIUM LEVEL 8.5 MG/DL (8.8-10.2); CREATININE FOR GFR 1.03 MG/DL (0.55-1.30); GLOMERULAR FILTRATION RATE 54.7 (>32); POTASSIUM SERUM 4.7 MEQ/L (3.5-5.1)
[2022-01-07 08:54] LABS: HEMOGLOBIN 8.1 g/dl (12.0-15.5)
[2022-01-07] MEDS: PANTOPRAZOLE 40MG VIAL IV SCH ×2 (09:18→21:26)
[2022-01-07] MEDS ORDERED: NICOTINE 21MG/24HR 1 EA TRANSDERMAL TD PRN (10:40)
[2022-01-07 11:36] LABS: BASO # 0.1 10^3/uL (0.0-0.2); BASO % 0.5 % (0.0-1.0); EOS # 0.1 10^3/uL (0.0-0.5); EOS % 0.8 % (0.0-3.0); LYMPH # 1.3 10^3/uL (1.5-5.0); LYMPH % 12.3 % (24.0-44.0); MONO # 1.2 10^3/uL (0.0-0.8); MONO % 11.2 % (2.0-8.0); NEUTROPHILS # 7.3 10^3/uL (1.5-8.5); NEUTROPHILS % 70.9 % (36.0-66.0)
[2022-01-07 12:33] LABS: HEMATOCRIT 25.7 % (36.0-47.0)
[2022-01-07] MEDS ORDERED: NITROGLYCERIN 0.4 MG SUBL TABLET SL PRN (12:40)
[2022-01-07 18:05] LABS: HEMATOCRIT 25.3 % (36.0-47.0); HEMOGLOBIN 7.8 g/dl (12.0-15.5)
[2022-01-07] MEDS ORDERED: cefTRIAXone SOD 1 GM in D5W MINI-BAG PLUS 50 ML IV SCH (21:00)
[2022-01-08] VITALS (12 sets, daily range): BP systolic 100–120; BP diastolic 52–68
[2022-01-08 07:24] LABS: BASO % 0.4 % (0.0-1.0); EOS # 0.1 10^3/uL (0.0-0.5); EOS % 1.5 % (0.0-3.0); HEMATOCRIT 24.7 % (36.0-47.0); HEMOGLOBIN 7.5 g/dl (12.0-15.5); LYMPH # 1.3 10^3/uL (1.5-5.0); LYMPH % 14.4 % (24.0-44.0); MEAN CORPUSCULAR HEMOGLOBIN 25.2 pg (27.0-33.0); MEAN CORPUSCULAR HGB CONC 30.4 g/dl (32.0-36.5); MEAN CORPUSCULAR VOLUME 82.9 fl (80.0-96.0); MONO # 0.9 10^3/uL (0.0-0.8); MONO % 9.7 % (2.0-8.0); NEUTROPHILS # 6.4 10^3/uL (1.5-8.5); NEUTROPHILS % 69.9 % (36.0-66.0); PLATELET COUNT, AUTOMATED 303 10^3/uL (150-450); RED BLOOD COUNT 2.98 10^6/uL (4.00-5.40); WHITE BLOOD COUNT 9.2 10^3/uL (4.0-10.0)
[2022-01-08 07:45] LABS: BLOOD UREA NITROGEN 13 MG/DL (7-18); CALCIUM LEVEL 8.7 MG/DL (8.8-10.2); CARBON DIOXIDE LEVEL 28 MEQ/L (21-32); CHLORIDE LEVEL 109 MEQ/L (98-107); CREATININE FOR GFR 0.91 MG/DL (0.55-1.30); GLOMERULAR FILTRATION RATE > 60.0 (>32); GLUCOSE, FASTING 86 MG/DL (70-100); MAGNESIUM LEVEL 2.1 MG/DL (1.8-2.4); POTASSIUM SERUM 4.3 MEQ/L (3.5-5.1); SODIUM LEVEL 142 MEQ/L (136-145)
[2022-01-08] MEDS: PANTOPRAZOLE 40MG VIAL IV SCH (08:08)
[2022-01-08 12:41] LABS: HEMATOCRIT 24.9 % (36.0-47.0); HEMOGLOBIN 7.5 g/dl (12.0-15.5)
[2022-01-09] MEDS ORDERED: PANTOPRAZOLE 40MG TAB (PROTONIX) PO SCH (09:00)
== END 2022-01-08 18:15 | disposition home or self-care (01) | DRG 378 ==
LOC: M ED 19:08 → M ED INP 23:36 → M PCU 01-07 21:55
PROVIDERS: ADMIT Internal Medicine; ATTEND Family Medicine
PROC: 30233N1 Transfusion of Nonautologous Red Blood Cells into Peripheral Vein, Percutaneous Approach (ICD-10-PCS; principal; 2022-01-06)
DX: K92.2 Gastrointestinal hemorrhage, unspecified (principal); D62 Acute posthemorrhagic anemia; J44.9 Chronic obstructive pulmonary disease, unspecified; Z95.5 Presence of coronary angioplasty implant and graft; R19.5 Other fecal abnormalities; I25.10 Atherosclerotic heart disease of native coronary artery without angina pectoris; F17.210 Nicotine dependence, cigarettes, uncomplicated; I25.2 Old myocardial infarction; Z95.2 Presence of prosthetic heart valve; Z79.899 Other long term (current) drug therapy; I73.9 Peripheral vascular disease, unspecified; I27.81 Cor pulmonale (chronic)

== ENCOUNTER → 2022-02-17 | Outpatient (CLI) | payer MEDICARE ==
[~2022-02-17] MED LIST changes: +ATOR40TA75 PO; +ELIQ5TAB; +ELIQ5TAB PO; +FERR1TAB8 PO; +METO25TA4 PO; +NITR4TASL SL; +PLAV1TAB2 PO; +POTA10TA17 PO
== END ==
LOC: M RAD 02-16 18:40 → M WHC 12:42
PROVIDERS: ATTEND Physician Assistant
DX: R60.0 Localized edema (principal)

== ENCOUNTER 2022-10-21 16:42 | Emergency (ER) | payer MEDICARE ==
[~2022-10-21] VITALS: Ht 160 cm; Wt 77.3 kg
[~2022-10-21 16:42] MED LIST changes: +CLOP75TA99 PO; -PLAV1TAB2 PO; +POTA-150 PO; -POTA10TA17 PO
[2022-10-21 18:57] LABS: BASO # 0.2 10^3/uL (0.0-0.2); BASO % 1.5 % (0.0-1.0); EOS # 0.4 10^3/uL (0.0-0.5); EOS % 3.6 % (0.0-3.0); HEMATOCRIT 42.2 % (36.0-47.0); HEMOGLOBIN 13.9 g/dl (12.0-15.5); LYMPH # 2.2 10^3/uL (1.5-5.0); LYMPH % 19.4 % (24.0-44.0); MEAN CORPUSCULAR HGB CONC 32.9 g/dl (32.0-36.5); MONO # 1.1 10^3/uL (0.0-0.8); MONO % 9.7 % (2.0-8.0); NEUTROPHILS # 6.7 10^3/uL (1.5-8.5); NEUTROPHILS % 59.8 % (36.0-66.0); PLATELET COUNT, AUTOMATED 288 10^3/uL (150-450); RED BLOOD COUNT 4.35 10^6/uL (4.00-5.40); WHITE BLOOD COUNT 11.2 10^3/uL (4.0-10.0)
[2022-10-21 19:03] LABS: ERYTHROCYTE SEDIMENTATION RATE 56 mm/hr (0-30)
[2022-10-21] MEDS ORDERED: CEPH500C PO (20:06)
[2022-10-21] MEDS ORDERED: CEPHALEXIN 500 MG CAP PO ONE (20:10)
[2022-10-21 20:39] VITALS: BP 113/68
== END 2022-10-21 20:41 | disposition home or self-care (01) ==
LOC: M ED 16:42
DX: L03.116 Cellulitis of left lower limb (principal); R91.1 Solitary pulmonary nodule; I25.2 Old myocardial infarction; I10 Essential (primary) hypertension; J44.9 Chronic obstructive pulmonary disease, unspecified; F17.200 Nicotine dependence, unspecified, uncomplicated; Z86.718 Personal history of other venous thrombosis and embolism; Z79.811 Long term (current) use of aromatase inhibitors; Z79.02 Long term (current) use of antithrombotics/antiplatelets; Z79.899 Other long term (current) drug therapy

== ENCOUNTER → 2022-11-08 | Outpatient (CLI) | payer MEDICARE ==
[~2022-11-08] MED LIST changes: +CEPH500C PO
== END ==
LOC: M PLAIMG 10:27
PROVIDERS: ATTEND Internal Medicine
DX: D38.1 Neoplasm of uncertain behavior of trachea, bronchus and lung (principal); R91.8 Other nonspecific abnormal finding of lung field; I25.10 Atherosclerotic heart disease of native coronary artery without angina pectoris; R59.0 Localized enlarged lymph nodes; N28.1 Cyst of kidney, acquired; R16.0 Hepatomegaly, not elsewhere classified; K75.3 Granulomatous hepatitis, not elsewhere classified; D73.89 Other diseases of spleen

== ENCOUNTER → 2022-12-19 | Outpatient (CLI) | payer MEDICARE | LOC: M PLARAD 12:44 | PROVIDERS: ATTEND Internal Medicine Pulmonary Disease | DX: R91.8 Other nonspecific abnormal finding of lung field (principal); R59.0 Localized enlarged lymph nodes; I71.43 Infrarenal abdominal aortic aneurysm, without rupture; K57.30 Diverticulosis of large intestine without perforation or abscess without bleeding; Z95.2 Presence of prosthetic heart valve | CPT/HCPCS: 78815; A9552 ==

== ENCOUNTER → 2022-12-27 | Outpatient (CLI) | payer MEDICARE ==
[~2022-12-27] MED LIST changes: +FURO20TA2 PO; +GABA-282 PO
== END ==
LOC: M ONCR 13:48
PROVIDERS: ATTEND General Practice
DX: C34.11 Malignant neoplasm of upper lobe, right bronchus or lung (principal); B37.89 Other sites of candidiasis; D64.9 Anemia, unspecified; F17.218 Nicotine dependence, cigarettes, with other nicotine-induced disorders; G47.33 Obstructive sleep apnea (adult) (pediatric); K21.9 Gastro-esophageal reflux disease without esophagitis; I51.9 Heart disease, unspecified; I70.213 Atherosclerosis of native arteries of extremities with intermittent claudication, bilateral legs; Z79.01 Long term (current) use of anticoagulants; Z79.899 Other long term (current) drug therapy; Z80.0 Family history of malignant neoplasm of digestive organs; Z95.5 Presence of coronary angioplasty implant and graft

== ENCOUNTER → 2023-01-25 | Outpatient (RCR) | payer MEDICARE ==
[~2023-01-25] MED LIST changes: +FLUC100T3 PO; +TERB1CRE2 TOP
== END ==
LOC: M ONCR 01-05 13:48
PROVIDERS: ATTEND General Practice
DX: C34.11 Malignant neoplasm of upper lobe, right bronchus or lung (principal)

== ENCOUNTER 2023-03-26 10:21 | Emergency (ER) | payer MEDICARE ==
[~2023-03-26] VITALS: Ht 157.5 cm; Wt 77.3 kg
[2023-03-26] MEDS ORDERED: ASPI81CH33 PO (11:50)
[2023-03-26 13:23] LABS: HEMATOCRIT 47.8 % (36.0-47.0); HEMOGLOBIN 15.2 g/dl (12.0-15.5); MEAN CORPUSCULAR HGB CONC 31.8 g/dl (32.0-36.5); MEAN CORPUSCULAR VOLUME 97.4 fl (80.0-96.0); PLATELET COUNT, AUTOMATED 223 10^3/uL (150-450); RED BLOOD COUNT 4.91 10^6/uL (4.00-5.40); WHITE BLOOD COUNT 8.9 10^3/uL (4.0-10.0)
[2023-03-26 13:40] LABS: INR 0.92; PROTHROMBIN TIME 12.6 SECONDS (12.5-14.5)
[2023-03-26 13:41] LABS: ATYPICAL LYMPH 3 % (0-5); BASOPHILS 1 % (0-1); EOSINOPHILS 1 % (0-3); LYMPHOCYTES 14 % (16-44); METAMYELOCYTES 2 % (0-0); MONOCYTES 8 % (0-5); NEUTROPHILS 70 % (28-66); PARTIAL THROMBOPLASTIN TIME 33.2 SECONDS (24.8-34.2)
[2023-03-26 13:44] LABS: ANISOCYTOSIS 1+; PLATELET CLUMPS SMALL AMT; PLATELET ESTIMATE NORMAL (NORMAL)
[2023-03-26 13:45] LABS: POLYCHROMASIA 1+
[2023-03-26 15:11] VITALS: BP 135/60; TEMP 97.4; O2SAT 92
== END 2023-03-26 15:14 | disposition home or self-care (01) ==
LOC: M ED 10:21
DX: I50.9 Heart failure, unspecified (principal); I87.2 Venous insufficiency (chronic) (peripheral); R60.0 Localized edema; S83.011A Lateral subluxation of right patella, initial encounter; Z87.81 Personal history of (healed) traumatic fracture; I25.10 Atherosclerotic heart disease of native coronary artery without angina pectoris; I25.2 Old myocardial infarction; F17.200 Nicotine dependence, unspecified, uncomplicated; Z79.899 Other long term (current) drug therapy

== ENCOUNTER → 2023-04-11 | Outpatient (CLI) | payer MEDICARE ==
[~2023-04-11] MED LIST changes: +ASPI81CH33 PO
== END ==
LOC: M RAD 09:31
PROVIDERS: ATTEND General Practice
DX: C34.11 Malignant neoplasm of upper lobe, right bronchus or lung (principal)

== ENCOUNTER → 2023-04-26 | Outpatient (CLI) | payer MEDICARE | LOC: M ONCR 14:23 | PROVIDERS: ATTEND General Practice | DX: C34.11 Malignant neoplasm of upper lobe, right bronchus or lung (principal); F17.210 Nicotine dependence, cigarettes, uncomplicated; Z71.2 Person consulting for explanation of examination or test findings; Z79.82 Long term (current) use of aspirin; Z79.899 Other long term (current) drug therapy; Z92.3 Personal history of irradiation ==

== ENCOUNTER → 2023-10-23 | Outpatient (CLI) | payer MEDICARE | LOC: M RAD 13:19 | PROVIDERS: ATTEND General Practice | DX: C34.11 Malignant neoplasm of upper lobe, right bronchus or lung (principal); J47.9 Bronchiectasis, uncomplicated; J43.9 Emphysema, unspecified; R91.8 Other nonspecific abnormal finding of lung field; Z95.2 Presence of prosthetic heart valve; I25.10 Atherosclerotic heart disease of native coronary artery without angina pectoris; I70.0 Atherosclerosis of aorta; Q40.8 Other specified congenital malformations of upper alimentary tract; N20.0 Calculus of kidney ==

== ENCOUNTER → 2023-10-27 | Outpatient (CLI) | payer MEDICARE | LOC: M ONCR 14:12 | PROVIDERS: ATTEND General Practice | DX: C34.11 Malignant neoplasm of upper lobe, right bronchus or lung (principal); F17.210 Nicotine dependence, cigarettes, uncomplicated; R91.1 Solitary pulmonary nodule; Z71.2 Person consulting for explanation of examination or test findings; Z79.82 Long term (current) use of aspirin; Z79.899 Other long term (current) drug therapy; Z92.3 Personal history of irradiation ==

== ENCOUNTER 2023-11-12 07:44 | Emergency (ER) | payer MEDICARE ==
[~2023-11-12] VITALS: Ht 157.5 cm; Wt 77.3 kg
[2023-11-12 10:08] VITALS: TEMP 97.3
[2023-11-12] MEDS: KETOROLAC 60MG 2ML VIAL IM ONE (11:45)
[2023-11-12] MEDS: CYCLOBENZAPRINE 5MG TABLET PO ONE (11:45)
[2023-11-12] MEDS: LIDOCAINE 5% (LIDODERM) PATCH TD ONE (11:45)
[2023-11-12] MEDS ORDERED: KETO10TAB PO (13:04)
[2023-11-12] MEDS ORDERED: LIDO5DIS41 TOP (13:04)
[2023-11-12] MEDS ORDERED: CYCL-707 PO (13:04)
[2023-11-12 13:19] VITALS: BP 154/82; O2SAT 95
[2023-11-12] MEDS ORDERED: methocarbamoL 500 MG TAB PO ONE (14:05)
[2023-11-12] MEDS ORDERED: METH-1164 PO (14:05)
== END 2023-11-12 13:20 | disposition home or self-care (01) ==
LOC: M ED 07:44
DX: M25.512 Pain in left shoulder (principal); M19.012 Primary osteoarthritis, left shoulder; W06.XXXA Fall from bed, initial encounter; C34.90 Malignant neoplasm of unspecified part of unspecified bronchus or lung; I10 Essential (primary) hypertension; F17.200 Nicotine dependence, unspecified, uncomplicated; Y92.009 Unspecified place in unspecified non-institutional (private) residence as the place of occurrence of the external cause; Y93.9 Activity, unspecified; Y99.9 Unspecified external cause status; Z79.82 Long term (current) use of aspirin; Z79.02 Long term (current) use of antithrombotics/antiplatelets; Z79.891 Long term (current) use of opiate analgesic; Z79.811 Long term (current) use of aromatase inhibitors; Z79.899 Other long term (current) drug therapy
CPT/HCPCS: 73030; 73060; 96372; 99283; J1885

== ENCOUNTER 2023-11-27 11:52 | Emergency (ER) | payer MEDICARE ==
[~2023-11-27] VITALS: Ht 157.5 cm; Wt 77.3 kg
[~2023-11-27 11:52] MED LIST changes: +CYCL-707 PO; +KETO10TAB PO; +LIDO5DIS41 TOP; +METH-1164 PO
[2023-11-27] MEDS: MORPHINE 4 MG/ML 1ML VIAL IV ONE (13:27)
[2023-11-27 13:35] LABS: BASO # 0.1 10^3/uL (0.0-0.2); EOS # 0.2 10^3/uL (0.0-0.5); EOS % 2.9 % (0.0-3.0); HEMATOCRIT 51.7 % (36.0-47.0); HEMOGLOBIN 16.4 g/dl (12.0-15.5); LYMPH # 1.2 10^3/uL (1.5-5.0); LYMPH % 14.5 % (24.0-44.0); MEAN CORPUSCULAR HGB CONC 31.7 g/dl (32.0-36.5); MEAN CORPUSCULAR VOLUME 97.7 fl (80.0-96.0); MONO # 0.8 10^3/uL (0.0-0.8); MONO % 9.6 % (2.0-8.0); NEUTROPHILS # 5.6 10^3/uL (1.5-8.5); NEUTROPHILS % 67.6 % (36.0-66.0); PLATELET COUNT, AUTOMATED 238 10^3/uL (150-450); RED BLOOD COUNT 5.29 10^6/uL (4.00-5.40); WHITE BLOOD COUNT 8.3 10^3/uL (4.0-10.0)
[2023-11-27 14:07] LABS: ALBUMIN 3.1 G/DL (3.2-5.2); ALKALINE PHOSPHATASE 153 U/L (46-116); ALT/SGPT 16 U/L (7.0-40); AST/SGOT 45 U/L (<34); BILIRUBIN,TOTAL 0.5 MG/DL (0.3-1.2); BLOOD UREA NITROGEN 14 MG/DL (9-23); CALCIUM LEVEL 9.1 MG/DL (8.3-10.6); CARBON DIOXIDE LEVEL 29 MMOL/L (20-31); CHLORIDE LEVEL 107 MMOL/L (98-107); CREATININE FOR GFR 0.87 MG/DL (0.55-1.30); GLOMERULAR FILTRATION RATE > 60.0 (>32); GLUCOSE, FASTING 88 MG/DL (74-106); POTASSIUM SERUM 5.8 MMOL/L (3.5-5.1); SODIUM LEVEL 141 MMOL/L (136-145); TOTAL PROTEIN 6.3 G/DL (5.7-8.2)
[2023-11-27] MEDS ORDERED: ISOVUE-370 76% 100ML VIAL As Ordered ONE (14:16)
[2023-11-27] MEDS ORDERED: HYDR-3713 PO (16:18)
[2023-11-27 16:24] VITALS: BP 129/63; TEMP 98; O2SAT 90
== END 2023-11-27 16:45 | disposition home or self-care (01) ==
LOC: M ED 11:52
DX: S22.41XA Multiple fractures of ribs, right side, initial encounter for closed fracture (principal); S42.112A Displaced fracture of body of scapula, left shoulder, initial encounter for closed fracture; R91.8 Other nonspecific abnormal finding of lung field; W19.XXXA Unspecified fall, initial encounter; Y92.9 Unspecified place or not applicable; Y93.9 Activity, unspecified; Y99.9 Unspecified external cause status; I25.2 Old myocardial infarction; I10 Essential (primary) hypertension; J44.9 Chronic obstructive pulmonary disease, unspecified; D64.9 Anemia, unspecified; Z86.718 Personal history of other venous thrombosis and embolism; F17.200 Nicotine dependence, unspecified, uncomplicated; Z79.82 Long term (current) use of aspirin; Z79.899 Other long term (current) drug therapy
CPT/HCPCS: 71101; 71260; 73010; 73060; 80047; 80053; 85025; 93005; 96374; 99284; Q9967

== ENCOUNTER → 2023-12-28 | Outpatient (CLI) | payer MEDICARE ==
[~2023-12-28] MED LIST changes: +HYDR-3713 PO
== END ==
LOC: M SOG 10:21
PROVIDERS: ATTEND Physician Assistant
DX: M54.2 Cervicalgia (principal); S42.102D Fracture of unspecified part of scapula, left shoulder, subsequent encounter for fracture with routine healing; M47.812 Spondylosis without myelopathy or radiculopathy, cervical region

== ENCOUNTER → 2024-01-23 | Outpatient (CLI) | payer MEDICARE | LOC: M RAD 13:44 | PROVIDERS: ATTEND General Practice | DX: C34.11 Malignant neoplasm of upper lobe, right bronchus or lung (principal); R91.8 Other nonspecific abnormal finding of lung field; I51.7 Cardiomegaly; Z95.2 Presence of prosthetic heart valve; I70.0 Atherosclerosis of aorta; M48.54XA Collapsed vertebra, not elsewhere classified, thoracic region, initial encounter for fracture; J98.11 Atelectasis ==

== ENCOUNTER → 2024-01-30 | Outpatient (CLI) | payer MEDICARE | LOC: M ONCR 14:12 | PROVIDERS: ATTEND General Practice | DX: C34.11 Malignant neoplasm of upper lobe, right bronchus or lung (principal); F17.210 Nicotine dependence, cigarettes, uncomplicated; Z71.2 Person consulting for explanation of examination or test findings; R91.1 Solitary pulmonary nodule; Z79.82 Long term (current) use of aspirin; Z79.899 Other long term (current) drug therapy; Z92.3 Personal history of irradiation ==

== ENCOUNTER → 2024-02-02 | Outpatient (CLI) | payer MEDICARE | LOC: M SOG 07:52 | PROVIDERS: ATTEND Physician Assistant | DX: S42.102A Fracture of unspecified part of scapula, left shoulder, initial encounter for closed fracture (principal); M19.012 Primary osteoarthritis, left shoulder; Y93.9 Activity, unspecified; Y92.9 Unspecified place or not applicable ==

== ENCOUNTER → 2024-03-13 | Outpatient (CLI) | payer MEDICARE | LOC: M SOG 07:57 | PROVIDERS: ATTEND Physician Assistant | DX: S42.102D Fracture of unspecified part of scapula, left shoulder, subsequent encounter for fracture with routine healing (principal) ==

== ENCOUNTER 2024-03-31 21:31 | Inpatient (IN) | payer MEDICARE ==
[~2024-03-31] VITALS: Ht 157.5 cm; Wt 70.9 kg
[2024-03-31] MEDS: IPRATROPIUM 0.5MG/ALBUTEROL 2.5MG INH SOL UD 3ML (DUONEB) NEB ONE ×2 (22:01→22:02)
[2024-03-31 22:04] LABS: ABG BASE EXCESS 2.7 (-2.0-2.0); ABG HCO3 32.1 MMOL/L (22.0-26.0); ABG O2 SATURATION 96.6 % (95.0-99.0); ABG STANDARD HCO3 26.8 MMOL/L. (22.0-26.0); ABG TOTAL CO2 34.3 MMOL/L (23.0-31.0); ABG pH (ARTERIAL) 7.278 UNITS (7.350-7.450)
[2024-03-31 22:09] LABS: ABG PARTIAL PRESSURE CO2 70.2 mmHg (35.0-45.0)
[2024-03-31 22:17] LABS: BASO # 0.1 10^3/uL (0.0-0.2); BASO % 0.8 % (0.0-1.0); EOS % 0.3 % (0.0-3.0); HEMATOCRIT 51.1 % (36.0-47.0); HEMOGLOBIN 15.9 g/dl (12.0-15.5); LYMPH # 1.1 10^3/uL (1.5-5.0); LYMPH % 14.8 % (24.0-44.0); MEAN CORPUSCULAR HEMOGLOBIN 29.6 pg (27.0-33.0); MEAN CORPUSCULAR HGB CONC 31.1 g/dl (32.0-36.5); MEAN CORPUSCULAR VOLUME 95.2 fl (80.0-96.0); MONO % 13.4 % (2.0-8.0); NEUTROPHILS # 5.1 10^3/uL (1.5-8.5); NEUTROPHILS % 66.1 % (36.0-66.0); PLATELET COUNT, AUTOMATED 205 10^3/uL (150-450); RED BLOOD COUNT 5.37 10^6/uL (4.00-5.40); WHITE BLOOD COUNT 7.7 10^3/uL (4.0-10.0)
[2024-03-31] MEDS: methylPREDNISolone 125MG 2ML VIAL IV ONE (22:23)
[2024-03-31] MEDS: NS 1,000 ML IV ONE ×2 (22:23→23:20)
[2024-03-31] MEDS: ACETAMINOPHEN *IV* 1,000 MG in IV 1 EA IV ONE (22:31)
[2024-03-31 23:09] LABS: ALBUMIN 3.1 G/DL (3.2-5.2); ALKALINE PHOSPHATASE 155 U/L (46-116); ALT/SGPT 13 U/L (7.0-40); AST/SGOT 16 U/L (<34); BILIRUBIN,DIRECT 0.2 MG/DL (<0.4); BILIRUBIN,TOTAL 0.5 MG/DL (0.3-1.2); BLOOD UREA NITROGEN 16 MG/DL (9-23); CALCIUM LEVEL 8.5 MG/DL (8.3-10.6); CARBON DIOXIDE LEVEL 32 MMOL/L (20-31); CHLORIDE LEVEL 105 MMOL/L (98-107); CK-MB VALUE MASS < 1.0 NG/ML (<3.6); CPK CREATINE PHOSPHOKINASE 26 U/L (34-145); CREATININE FOR GFR 1.21 MG/DL (0.55-1.30); GLOMERULAR FILTRATION RATE 45.2 (>32); GLUCOSE, FASTING 98 MG/DL (74-106); MB/CK RELATIVE INDEX 3.84 (< OR =4); POTASSIUM SERUM 4.5 MMOL/L (3.5-5.1); SODIUM LEVEL 138 MMOL/L (136-145); TOTAL PROTEIN 6.5 G/DL (5.7-8.2)
[2024-03-31 23:11] LABS: THYROID STIMULATING HORMONE 0.897 uIU/ML (0.55-4.78)
[2024-03-31 23:14] LABS: CK-MB VALUE MASS < 1.0 NG/ML (<3.6); CPK CREATINE PHOSPHOKINASE 49 U/L (34-145); MB/CK RELATIVE INDEX 2.04 (< OR =4)
[2024-03-31 23:21] LABS: PROCALCITONIN 0.07 ng/ml
[2024-03-31] MEDS ORDERED: ISOVUE-370 76% 100ML VIAL As Ordered ONE (23:23)
[2024-03-31] MEDS: CEFEPIME HCL 2 GM in D5W MINI-BAG PLUS 50 ML IV ONE (23:27)
[2024-03-31 23:42] LABS: ABG BASE EXCESS -3.2 (-2.0-2.0); ABG O2 SATURATION 99.5 % (95.0-99.0); ABG PARTIAL PRESSURE O2 302.3 mmHg (75.0-100.0); ABG STANDARD HCO3 21.9 MMOL/L. (22.0-26.0); ABG TOTAL CO2 26.8 MMOL/L (23.0-31.0); ABG pH (ARTERIAL) 7.253 UNITS (7.350-7.450)
[2024-04-01] VITALS (30 sets, daily range): BP systolic 94–158; BP diastolic 46–92; TEMP 97.2–98.9; O2SAT 85–99
[2024-04-01] MEDS: AZITHROMYCIN INJ 500 MG, VIAL MATE ADAPTER 1 EACH in NS 250 ML IV ONE (00:37)
[2024-04-01] MEDS ORDERED: HOME MED LIST COMPLETE! XX SCH (01:10)
[2024-04-01] MEDS: NOREPINEPHRINE 4MG IN D5 250ML 4 MG in IV 1 EA IV SCH ×2 (01:33→02:57)
[2024-04-01] MEDS ORDERED: MOM 30ML SUSPENSION UDC PO PRN (02:00)
[2024-04-01] MEDS ORDERED: ACETAMINOPHEN TAB 650MG DOSE (2X325MG) PO PRN (02:00)
[2024-04-01] MEDS ORDERED: ALBUTEROL SULFATE 2.5MG/0.5ML INH NEB SOLN NEB PRN (02:00)
[2024-04-01] MEDS: IPRATROPIUM 0.5MG/ALBUTEROL 2.5MG INH SOL UD 3ML (DUONEB) NEB SCH (02:51)
[2024-04-01] MEDS: LR 1,000 ML IV SCH (03:31)
[2024-04-01] MEDS: methylPREDNISolone 40MG 1ML VIAL IV SCH (05:30)
[2024-04-01] MEDS: DOXYCYCLINE HYCLATE 100 MG in D5W MINI-BAG PLUS 100 ML IV SCH (05:30)
[2024-04-01 07:59] LABS: VENOUS BASE EXCESS -1.8 (-2.0-2.0); VENOUS HCO3 27.3 MMOL/L (23.0-27.0); VENOUS O2 SATURATION 98.6 % (60.0-80.0); VENOUS PARTIAL PRESSURE CO2 65.7 mmHg (38.0-50.0); VENOUS PH 7.237 UNITS (7.330-7.430); VENOUS TOTAL CO2 29.4 MMOL/L (24.0-28.0)
[2024-04-01 08:04] LABS: HEMATOCRIT 46.4 % (36.0-47.0); HEMOGLOBIN 14.5 g/dl (12.0-15.5); MEAN CORPUSCULAR HEMOGLOBIN 30.2 pg (27.0-33.0); MEAN CORPUSCULAR HGB CONC 31.3 g/dl (32.0-36.5); MEAN CORPUSCULAR VOLUME 96.7 fl (80.0-96.0); PLATELET COUNT, AUTOMATED 151 10^3/uL (150-450); WHITE BLOOD COUNT 5.6 10^3/uL (4.0-10.0)
[2024-04-01 08:42] LABS: ALBUMIN 2.5 G/DL (3.2-5.2); BILIRUBIN,TOTAL 0.2 MG/DL (0.3-1.2); CALCIUM LEVEL 7.8 MG/DL (8.3-10.6); CREATININE FOR GFR 1.02 MG/DL (0.55-1.30); GLOMERULAR FILTRATION RATE 55.1 (>32); TOTAL PROTEIN 5.5 G/DL (5.7-8.2)
[2024-04-01] MEDS: SYMBICORT 160/4.5MCG INHALER 6GM INH SCH (08:58)
[2024-04-01] MEDS: DOCUSATE SODIUM 100MG CAPSULE PO SCH (09:00)
[2024-04-01] MEDS: PANTOPRAZOLE 40MG VIAL IV SCH (10:31)
[2024-04-01] MEDS: ENOXAPARIN 40MG/0.4ML SYRINGE (J1650 PER 10MG) SC SCH (10:31)
[2024-04-01] MEDS: NYSTATIN 100,000 UNITS/GM TOPICAL PWD 15GM TOP SCH (10:31)
[2024-04-01] MEDS ORDERED: CEFEPIME HCL 1 GM in D5W 50 ML IV SCH (11:00)
[2024-04-01] MEDS ORDERED: NICOTINE 21MG/24HR 1 EA TRANSDERMAL TD PRN (18:00)
[2024-04-01] MEDS: GABAPENTIN 300 MG CAP PO SCH (21:04)
[2024-04-01] MEDS: guaiFENesin ER TABLET 600 MG TAB PO SCH (21:04)
[2024-04-01] MEDS: LATANOPROST 0.005% OPHTH SOLN 2.5 ML OU SCH (21:04)
[2024-04-01] MEDS: BENZONATATE 100MG CAPSULE PO SCH (21:04)
[2024-04-01] MEDS: AZITHROMYCIN 250MG TABLET PO SCH (21:04)
[2024-04-01] MEDS: METOCLOPRAMIDE INJ 10MG/2ML VIAL IV ONE (21:56)
[2024-04-02] VITALS (13 sets, daily range): BP systolic 125–146; BP diastolic 60–70; TEMP 97.2–97.9; O2SAT 82–98
[2024-04-02 04:39] LABS: BASO % 0.4 % (0.0-1.0); EOS % 0.1 % (0.0-3.0); HEMATOCRIT 44.6 % (36.0-47.0); HEMOGLOBIN 13.9 g/dl (12.0-15.5); LYMPH # 0.6 10^3/uL (1.5-5.0); LYMPH % 8.3 % (24.0-44.0); MEAN CORPUSCULAR HEMOGLOBIN 29.7 pg (27.0-33.0); MEAN CORPUSCULAR HGB CONC 31.2 g/dl (32.0-36.5); MEAN CORPUSCULAR VOLUME 95.3 fl (80.0-96.0); MONO # 0.5 10^3/uL (0.0-0.8); MONO % 7.5 % (2.0-8.0); NEUTROPHILS # 5.7 10^3/uL (1.5-8.5); NEUTROPHILS % 78.8 % (36.0-66.0); PLATELET COUNT, AUTOMATED 167 10^3/uL (150-450); RED BLOOD COUNT 4.68 10^6/uL (4.00-5.40); WHITE BLOOD COUNT 7.2 10^3/uL (4.0-10.0)
[2024-04-02 04:56] LABS: BLOOD UREA NITROGEN 15 MG/DL (9-23); CALCIUM LEVEL 8.3 MG/DL (8.3-10.6); CARBON DIOXIDE LEVEL 32 MMOL/L (20-31); CHLORIDE LEVEL 107 MMOL/L (98-107); CREATININE FOR GFR 0.83 MG/DL (0.55-1.30); GLOMERULAR FILTRATION RATE > 60.0 (>32); GLUCOSE, FASTING 123 MG/DL (74-106); MAGNESIUM LEVEL 1.4 MG/DL (1.8-2.4); POTASSIUM SERUM 4.5 MMOL/L (3.5-5.1); SODIUM LEVEL 139 MMOL/L (136-145)
[2024-04-02] MEDS: MAG SULF 1GM/100ML (MAG RUN) 1 GM in IV 1 EA IV SCH (05:25)
[2024-04-02] MEDS ORDERED: MAG SULF 1GM/100ML (MAG RUN) 1 GM in IV 1 EA IV SCH (07:50)
[2024-04-02] MEDS: ASPIRIN 81MG CHEW TABLET PO SCH (09:54)
[2024-04-02] MEDS: ATORVASTATIN 20 MG TAB PO SCH (09:56)
[2024-04-02] MEDS: CARVedilol 3.125 MG TAB PO SCH (11:34)
[2024-04-02] MEDS: CEPACOL LOZENGE PO PRN (18:23)
[2024-04-03] VITALS (8 sets, daily range): BP systolic 114–156; BP diastolic 56–73; TEMP 97.2–98.4; O2SAT 88–95
[2024-04-03 04:41] LABS: BASO % 0.3 % (0.0-1.0); HEMATOCRIT 43.1 % (36.0-47.0); HEMOGLOBIN 13.5 g/dl (12.0-15.5); LYMPH # 0.4 10^3/uL (1.5-5.0); MEAN CORPUSCULAR HEMOGLOBIN 29.9 pg (27.0-33.0); MEAN CORPUSCULAR HGB CONC 31.3 g/dl (32.0-36.5); MEAN CORPUSCULAR VOLUME 95.4 fl (80.0-96.0); MONO # 0.4 10^3/uL (0.0-0.8); NEUTROPHILS % 85.6 % (36.0-66.0); PLATELET COUNT, AUTOMATED 192 10^3/uL (150-450); RED BLOOD COUNT 4.52 10^6/uL (4.00-5.40)
[2024-04-03 04:56] LABS: BLOOD UREA NITROGEN 20 MG/DL (9-23); CALCIUM LEVEL 8.9 MG/DL (8.3-10.6); CARBON DIOXIDE LEVEL 30 MMOL/L (20-31); CHLORIDE LEVEL 106 MMOL/L (98-107); CREATININE FOR GFR 0.81 MG/DL (0.55-1.30); GLOMERULAR FILTRATION RATE > 60.0 (>32); GLUCOSE, FASTING 116 MG/DL (74-106); MAGNESIUM LEVEL 2.1 MG/DL (1.8-2.4); POTASSIUM SERUM 4.8 MMOL/L (3.5-5.1); SODIUM LEVEL 138 MMOL/L (136-145)
[2024-04-03] MEDS ORDERED: MUCI600T31 PO (12:14)
[2024-04-03] MEDS ORDERED: BENZ1LOZ9 PO (12:14)
[2024-04-03] MEDS ORDERED: PRED20TA PO (12:14)
[2024-04-03] MEDS ORDERED: IPRA0.00 NEB (13:32)
[2024-04-03] MEDS ORDERED: ALB2.5NEB NEB (13:32)
[2024-04-03] MEDS ORDERED: SYMB16INH INH (13:32)
== END 2024-04-03 15:09 | disposition home health service (06) | DRG 871 ==
LOC: M ED 21:31 → M ED INP 04-01 02:05 → M ICU 04-01 02:42
PROVIDERS: ADMIT Family Medicine; ATTEND Internal Medicine Pulmonary Disease
DX: A41.9 Sepsis, unspecified organism (principal); R65.21 Severe sepsis with septic shock; G93.41 Metabolic encephalopathy; J96.21 Acute and chronic respiratory failure with hypoxia; J96.22 Acute and chronic respiratory failure with hypercapnia; I21.A1 Myocardial infarction type 2; I50.32 Chronic diastolic (congestive) heart failure; J44.1 Chronic obstructive pulmonary disease with (acute) exacerbation; I77.4 Celiac artery compression syndrome; I73.9 Peripheral vascular disease, unspecified; I48.91 Unspecified atrial fibrillation; I25.10 Atherosclerotic heart disease of native coronary artery without angina pectoris; Z95.5 Presence of coronary angioplasty implant and graft; E78.5 Hyperlipidemia, unspecified; Z79.01 Long term (current) use of anticoagulants; B34.8 Other viral infections of unspecified site; J06.9 Acute upper respiratory infection, unspecified; F17.200 Nicotine dependence, unspecified, uncomplicated; Z79.899 Other long term (current) drug therapy; Z79.82 Long term (current) use of aspirin; Z79.52 Long term (current) use of systemic steroids

== ENCOUNTER 2024-04-07 13:51 | Emergency (ER) | payer MEDICARE ==
[~2024-04-07] VITALS: Ht 157.5 cm; Wt 65.3 kg
[~2024-04-07 13:51] MED LIST changes: +ALB2.5NEB NEB; +BENZ1LOZ9 PO; +IPRA0.00 NEB; +MUCI600T31 PO; +PRED20TA PO; +SYMB16INH INH
[2024-04-07 16:06] LABS: VENOUS BASE EXCESS 9.5 (-2.0-2.0); VENOUS HCO3 37.5 MMOL/L (23.0-27.0); VENOUS O2 SATURATION 49.6 % (60.0-80.0); VENOUS PARTIAL PRESSURE CO2 65.3 mmHg (38.0-50.0); VENOUS PARTIAL PRESSURE O2 27.3 mmHg (30.0-50.0); VENOUS PH 7.377 UNITS (7.330-7.430); VENOUS STANDARD HCO3 31.9 MMOL/L; VENOUS TOTAL CO2 39.5 MMOL/L (24.0-28.0)
[2024-04-07 16:10] LABS: HEMATOCRIT 45.1 % (36.0-47.0); HEMOGLOBIN 14.2 g/dl (12.0-15.5); MEAN CORPUSCULAR HEMOGLOBIN 29.9 pg (27.0-33.0); MEAN CORPUSCULAR HGB CONC 31.5 g/dl (32.0-36.5); MEAN CORPUSCULAR VOLUME 94.9 fl (80.0-96.0); PLATELET COUNT, AUTOMATED 227 10^3/uL (150-450); RED BLOOD COUNT 4.75 10^6/uL (4.00-5.40); WHITE BLOOD COUNT 13.5 10^3/uL (4.0-10.0)
[2024-04-07 16:20] LABS: ATYPICAL LYMPH 1 % (0-5); BASOPHILS 1 % (0-1); EOSINOPHILS 4 % (0-3); LYMPHOCYTES 14 % (16-44); MONOCYTES 6 % (0-5); MYELOCYTES 1 % (0-0); NEUTROPHILS 71 % (28-66); PROMYELOCYTES 1 % (0-0)
[2024-04-07 16:21] LABS: PLATELET ESTIMATE NORMAL (NORMAL)
[2024-04-07] MEDS: predniSONE 20 MG TAB PO ONE (16:41)
[2024-04-07 16:48] LABS: ALBUMIN 3.2 G/DL (3.2-5.2); ALKALINE PHOSPHATASE 100 U/L (46-116); ALT/SGPT 18 U/L (7.0-40); AST/SGOT 33 U/L (<34); BILIRUBIN,DIRECT 0.3 MG/DL (<0.4); BILIRUBIN,TOTAL 1.1 MG/DL (0.3-1.2); BLOOD UREA NITROGEN 18 MG/DL (9-23); CALCIUM LEVEL 8.7 MG/DL (8.3-10.6); CARBON DIOXIDE LEVEL 37 MMOL/L (20-31); CHLORIDE LEVEL 100 MMOL/L (98-107); CREATININE FOR GFR 0.89 MG/DL (0.55-1.30); GLOMERULAR FILTRATION RATE > 60.0 (>32); GLUCOSE, FASTING 76 MG/DL (74-106); POTASSIUM SERUM 5.1 MMOL/L (3.5-5.1); SODIUM LEVEL 137 MMOL/L (136-145); TOTAL PROTEIN 6.1 G/DL (5.7-8.2)
[2024-04-07] MEDS: IPRATROPIUM 0.5MG/ALBUTEROL 2.5MG INH SOL UD 3ML (DUONEB) NEB ONE (16:49)
[2024-04-07] MEDS: NS 500 ML IV ONE (17:10)
[2024-04-07] MEDS ORDERED: PRED10TA2 PO (17:53)
[2024-04-07 18:22] VITALS: BP 118/56; TEMP 98.1; O2SAT 97
== END 2024-04-07 18:25 | disposition home or self-care (01) ==
LOC: M ED 13:51
DX: R03.1 Nonspecific low blood-pressure reading (principal); I45.10 Unspecified right bundle-branch block; J44.9 Chronic obstructive pulmonary disease, unspecified; F17.200 Nicotine dependence, unspecified, uncomplicated; Z86.79 Personal history of other diseases of the circulatory system; Z79.52 Long term (current) use of systemic steroids; Z79.82 Long term (current) use of aspirin; Z79.02 Long term (current) use of antithrombotics/antiplatelets; Z79.899 Other long term (current) drug therapy
CPT/HCPCS: 36415; 71045; 80048; 80076; 82803; 83605; 84443; 85025; 87040; 87486; 87581; 87633; 87798; 93005; 93041; 94640; 94760; 99284; J7512

== ENCOUNTER → 2024-05-17 | Outpatient (CLI) | payer MEDICARE ==
[~2024-05-17] MED LIST changes: +PRED10TA2 PO
== END ==
LOC: M SOG 07:22
PROVIDERS: ATTEND Physician Assistant
DX: S42.102D Fracture of unspecified part of scapula, left shoulder, subsequent encounter for fracture with routine healing (principal)

== ENCOUNTER → 2024-07-24 | Outpatient (CLI) | payer MEDICARE ==
[~2024-07-24] MED LIST changes: +GABA-1172 PO; -GABA-282 PO
== END ==
LOC: M RAD 11:32
PROVIDERS: ATTEND General Practice
DX: C34.11 Malignant neoplasm of upper lobe, right bronchus or lung (principal); J98.11 Atelectasis; R91.1 Solitary pulmonary nodule

== ENCOUNTER → 2024-07-31 | Outpatient (CLI) | payer MEDICARE | LOC: M ONCR 14:07 | PROVIDERS: ATTEND General Practice | DX: C34.11 Malignant neoplasm of upper lobe, right bronchus or lung (principal); R91.1 Solitary pulmonary nodule; J44.9 Chronic obstructive pulmonary disease, unspecified; F17.210 Nicotine dependence, cigarettes, uncomplicated; Z79.51 Long term (current) use of inhaled steroids; Z79.82 Long term (current) use of aspirin; Z79.899 Other long term (current) drug therapy; Z92.3 Personal history of irradiation ==